=== PATIENT | male | born 1950 | race Caucasian/White ===

== ENCOUNTER 2017-06-10 17:25 | Emergency (ER) | payer OTHER ==
[~2017-06-10] VITALS: Ht 172.7 cm; Wt 148.6 kg
[2017-06-10 17:36] VITALS: TEMP 36.5; Ht 172.7 cm; Wt 148.6 kg
[2017-06-10] MEDS ORDERED: ALBUT/IPRATROP 3MG/0.5MG NEB 3 ML VIAL INH STA (17:45)
[2017-06-10 17:48] VITALS: O2SAT 100
[2017-06-10 18:17] LABS: BASO % 0.3 %; BASO ABS # 0.02 K/uL (0-0.2); COMPLETE YES; EOS % 7.6 %; HEMATOCRIT 42.1 % (42-52); IG% 0.3 %; LYMPH % 21.9 %; LYMPH ABS # 1.42 K/uL (1.2-3.4); MEAN CELL VOLUME 98.1 fL (80-100); MEAN CORPUSCULAR HEMOGLOBIN 31.5 pg (25-34); MEAN CORPUSCULAR HGB CONC 32.1 g/dl (32-36); MEAN PLATELET VOLUME 9.1 fL (7.4-10.4); MONO % 6.3 %; NEUT % 63.6 %; PLATELET COUNT 264 K/uL (130-400); RED BLOOD COUNT 4.29 M/uL (4.7-6.1); WHITE BLOOD COUNT 6.49 K/uL (4.8-10.8)
[2017-06-10 18:28] LABS: PROTHROMBIN TIME (PATIENT) 10.3 SECONDS (9.0-12.0)
--- NOTE | 2017-06-10 18:35 | DIAGNOSTIC IMAGING REPORT ---
CHEST ONE VIEW PORTABLE HISTORY: Short of breath. COMPARISON: None. FINDINGS: The heart is mildly enlarged. Mild diffuse interstitial thickening. This may represent pulmonary vascular congestion. No focal lung consolidations to suggest pneumonia. No pleural effusions. No pneumothorax. IMPRESSION: Cardiomegaly with mild pulmonary vascular congestion without overt edema. Electronically signed by: Magnus Obando M.D. 06/10/2017 6:34 PM Dictated Date/Time: 06/10/2017 6:33 PM
[2017-06-10 18:42] LABS: ALT/SGPT 19 U/L (12-78); BLOOD UREA NITROGEN 20 mg/dl (7-18); BUN/CREATININE RATIO 22.5 (10-20); CALCIUM 8.5 mg/dl (8.5-10.1); CARBON DIOXIDE 32 mmol/L (21-32); CHLORIDE 104 mmol/L (98-107); CREATININE 0.87 mg/dl (0.60-1.40); GLUCOSE 103 mg/dl (70-99); POTASSIUM 3.8 mmol/L (3.5-5.1); SODIUM 142 mmol/L (136-145)
[2017-06-10 18:47] LABS: ALB/GLOB RATIO 0.9 (0.9-2); ALKALINE PHOSPHATASE 76 U/L (45-117); AST/SGOT 13 U/L (15-37); CKMB/CK RATIO 2.4 (0-3.0)
[2017-06-10] MEDS ORDERED: FUROSEMIDE 40 MG/4 ML VIAL IV STA (19:02)
[2017-06-10] MEDS ORDERED: GLYC1AER INH (19:05)
[2017-06-10] MEDS ORDERED: METO25TA3 PO (19:05)
[2017-06-10] MEDS ORDERED: ASPI81TA28 PO (19:05)
[2017-06-10] MEDS ORDERED: TAMS0.4C38 PO (19:05)
[2017-06-10] MEDS ORDERED: ALBINS/ INH (19:05)
[2017-06-10] MEDS ORDERED: ERGO500037 PO (19:05)
--- NOTE | 2017-06-10 19:06 | EMERGENCY ROOM VISIT NOTE ---
History Report prepared by Denis: Caroline Guidry Under the Supervision of: Dr. Enrique Abreu D.O. First contact with patient: 17:33 Chief Complaint: SHORTNESS OF BREATH Stated Complaint: BREATHING DIFF, COUGH History of Present Illness The patient is a 66 year old male who presents to the Emergency Room with complaints of worsening shortness of breath beginning an hour ago. The patient reports a difficult time breathing starting two days ago. He notes a cough and spitting up clear flem. The patient states that he has been unable to sleep for the past two days because every time he would lay down he would start wheezing. The patient states states he has had an episode like this before and it is because of his heart. He reports heart is only pumping at 60%. He notes when he walks his shortness of breath worsens. The patient wears 3 L of oxygen at home but states he is supposed to have it on 2 L. The patient has swelling in his legs which is normal for him. He used to be on a water pill. The patent has a history of a heart attack in 2014. Source of History: patient Onset: hour ago Position: other (generalized) Quality: other (shortness of breath) Timing: worsening Modifying Factors (Worsening): other (walking) Associated Symptoms: + cough, + SOB Review of Systems See HPI for pertinent positives & negatives. A total of 10 systems reviewed and were otherwise negative. Past Medical & Surgical Medical Problems: (1) Heart attack Family History No pertinent family history stated Social History Marital Status: Housing Status: lives with family Current/Historical Medications Scheduled Aspirin (Aspirin Ec), 81 MG PO DAILY Ergocalciferol (Vitamin D 35014 Unit), 50,000 UNIT PO WK Fenofibrate (Fenoglide), 120 MG PO DAILY Furosemide (Lasix), 40 MG PO DAILY Glycopyrrolate-Formoterol Fuma (Bevespi Aerosphere 9-4.8 Mcg/Act), 1 PUFF INH BID Metoprolol Succ (Toprol Xl) (Toprol-Xl), 25 MG PO DAILY Tamsulosin Hcl (Flomax), 0.4 MG PO QPM Scheduled PRN Albuterol Sulf (Proventil 0.083% 2.5MG/3ML), 2.5 MG INH QID PRN for Shortness of Breath Allergies Coded Allergies: No Known Allergies (Unverified , 06/10/17) Physical Exam Vital Signs Date Time Temp Pulse Resp B/P (MAP) Pulse Ox O2 Delivery O2 Flow Rate FiO2 06/10/17 18:56 69 22 103/60 91 Oxymask 4.0 06/10/17 17:56 71 06/10/17 17:48 100 Oxymask 4.0 06/10/17 17:42 100 Mask 4.0 06/10/17 17:40 100 Oxymask 4.0 06/10/17 17:36 36.5 72 31 138/65 100 Oxymask 4.0 Physical Exam CONSTITUTIONAL/VITAL SIGNS: Reviewed / noted above. GENERAL: Non-toxic in appearance. INTEGUMENTARY: Warm, dry, and [place]. HEAD: Normocephalic. EYES: without scleral icterus or trauma. ENT/OROPHARYNX: clear and moist. LYMPHADENOPATHY/NECK: Is supple without lymphadenopathy or meningismus. RESPIRATORY: Mild scattered wheezes. CARDIOVASCULAR: Regular rate and rhythm. GI/ABDOMEN: Soft and nontender. No organomegaly or pulsatile mass. No rebound or guarding. Normal bowel sounds. EXTREMITIES: Chronic bilateral pitting edema. Warm and well perfused. BACK: No CVA tenderness. NEUROLOGICAL: Intact without focal deficits. PSYCHIATRIC: normal affect. MUSCULOSKELETAL: Normally developed with good muscle tone. Medical Decision & Procedures ER Provider Diagnostic Interpretation: Radiology results as stated below per my review and radiologist interpretation: CHEST ONE VIEW PORTABLE FINDINGS: The heart is mildly enlarged. Mild diffuse interstitial thickening. This may represent pulmonary vascular congestion. No focal lung consolidations to suggest pneumonia. No pleural effusions. No pneumothorax. IMPRESSION: Cardiomegaly with mild pulmonary vascular congestion without overt edema. Electronically signed by: Magnus Obando M.D. Laboratory Results 06/10/17 18:00 Red Blood Count 4.29, Mean Corpuscular Volume 98.1, Mean Corpuscular Hemoglobin 31.5, Mean Corpuscular Hemoglobin Concent 32.1, Mean Platelet Volume 9.1, Neutrophils (%) (Auto) 63.6, Lymphocytes (%) (Auto) 21.9, Monocytes (%) (Auto) 6.3, Eosinophils (%) (Auto) 7.6, Basophils (%) (Auto) 0.3, Neutrophils # (Auto) 4.13, Lymphocytes # (Auto) 1.42, Monocytes # (Auto) 0.41, Eosinophils # (Auto) 0.49, Basophils # (Auto) 0.02 06/10/17 18:00 Test 06/10/17 18:00 White Blood Count 6.49 K/uL (4.8-10.8) Red Blood Count 4.29 M/uL (4.7-6.1) Hemoglobin 13.5 g/dL (14.0-18.0) Hematocrit 42.1 % (42-52) Mean Corpuscular Volume 98.1 fL (80-100) Mean Corpuscular Hemoglobin 31.5 pg (25-34) Mean Corpuscular Hemoglobin Concent 32.1 g/dl (32-36) Platelet Count 264 K/uL (130-400) Mean Platelet Volume 9.1 fL (7.4-10.4) Neutrophils (%) (Auto) 63.6 % Lymphocytes (%) (Auto) 21.9 % Monocytes (%) (Auto) 6.3 % Eosinophils (%) (Auto) 7.6 % Basophils (%) (Auto) 0.3 % Neutrophils # (Auto) 4.13 K/uL (1.4-6.5) Lymphocytes # (Auto) 1.42 K/uL (1.2-3.4) Monocytes # (Auto) 0.41 K/uL (0.11-0.59) Eosinophils # (Auto) 0.49 K/uL (0-0.5) Basophils # (Auto) 0.02 K/uL (0-0.2) RDW Standard Deviation 51.7 fL (36.4-46.3) RDW Coefficient of Variation 14.5 % (11.5-14.5) Immature Granulocyte % (Auto) 0.3 % Immature Granulocyte # (Auto) 0.02 K/uL (0.00-0.02) Prothrombin Time 10.3 SECONDS (9.0-12.0) Prothromb Time International Ratio 1.0 (0.9-1.1) Activated Partial Thromboplast Time 26.6 SECONDS (21.0-31.0) Partial Thromboplastin Ratio 1.0 Anion Gap 6.0 mmol/L (3-11) Est Creatinine Clear Calc Drug Dose 120.3 ml/min Estimated GFR () 105.0 Estimated GFR (Non- 90.6 BUN/Creatinine Ratio 22.5 (10-20) Calcium Level 8.5 mg/dl (8.5-10.1) Total Bilirubin 0.3 mg/dl (0.2-1) Aspartate Amino Transf (AST/SGOT) 13 U/L (15-37) Alanine Aminotransferase (ALT/SGPT) 19 U/L (12-78) Alkaline Phosphatase 76 U/L (45-117) Total Creatine Kinase 121 U/L (39-308) Creatine Kinase MB 2.9 ng/ml (0.5-3.6) Creatine Kinase MB Ratio 2.4 (0-3.0) Troponin I < 0.015 ng/ml (0-0.045) Total Protein 7.1 gm/dl (6.4-8.2) Albumin 3.3 gm/dl (3.4-5.0) Globulin 3.8 gm/dl (2.5-4.0) Albumin/Globulin Ratio 0.9 (0.9-2) Laboratory results as stated above per my review. Medications Administered Medications (Trade) Dose Ordered Sig/Jelly Route Start Time Stop Time Status Last Admin Dose Admin Albuterol/ Ipratropium (Duoneb) 3 ml NOW STAT INH 06/10/17 17:45 06/10/17 17:47 DC 06/10/17 17:45 3 ML ECG Indication: SOB/dyspnea Rate (beats per minute): 70 Rhythm: sinus rhythm Findings: no ectopy, other (no acute injury) ED Course 173: Previous medical records were reviewed. The patient was evaluated in room C6. A complete history and physical examination was performed. 174: Ordered Duoneb 3 ml INH. 190: Lasix Inj 40 mg IV. 8: On reevaluation, the patient is resting comfortably. I discussed the results and findings with the patient. He verbalized agreement of the treatment plan. The patient was discharged home. Medical Decision the differential was considered includes acute myocardial infarction, acute coronary syndrome, myocarditis, pericarditis, pericardial effusions /tamponad, esophageal perforation, pulmonary embolism, pneumonia, pneumothorax, cardiomyopathy, congestive heart, anemia , COPD/asthma exacerbation. This is a 66-year-old male who presents to the ED with a chief complaint of cough and some shortness of breath. The patient reports that his symptoms have been present for the past couple of days but worsened today around 4:30. Denies any productive cough. He has not had fevers. His physical exam is noted above. He does have some scattered wheezes on expiration. He has chronic lower extremity edema. He is in no distress and is saturating in the high 90s on his usual 2-3 L of oxygen. A twelve-lead EKG shows a sinus rhythm at a rate of 70. His CBC is normal. Chemistry panel is unremarkable. Troponin is negative. Chest x-ray reveals some mild vascular congestion and some cardiomegaly. The patient was told the results of the test. He was discharged with a prescription for Lasix for the next few days. He is felt to be stable for discharge and outpatient follow-up. Blood Pressure Screening Patient's blood pressure: Normal blood pressure Impression Primary Impression: Dyspnea Additional Impressions: CHF (congestive heart failure) COPD (chronic obstructive pulmonary disease) Scribe Attestation The scribe's documentation has been prepared under my direction and personally reviewed by me in its entirety. I confirm that the note above accurately reflects all work, treatment, procedures, and medical decision making performed by me. Departure Information Dispostion Home / Self-Care Prescriptions Furosemide (Lasix) 40 Mg Tab 40 MG PO DAILY, #3 TAB Prov: Enrique Abreu D.O. 06/10/17 Referrals No Doctor, Assigned (PCP) Forms HOME CARE DOCUMENTATION FORM, IMPORTANT VISIT INFORMATION Patient Instructions My [facility] Additional Instructions Lasix once a day for the next 3 days as prescribed. Follow-up with your doctor for further care and evaluation in 1-2 days. Return to the emergency department for worsening or new symptoms or any concerns. You have been examined and treated today on an emergency basis only. This is not a substitute for, or an effort to provide, complete comprehensive medical care. It is impossible to recognize and treat all injuries or illnesses in a single emergency department visit. It is therefore important that you follow up closely with your doctor. Call as soon as possible for an appointment. Problem Qualifiers
[2017-06-10] MEDS ORDERED: FENO120T PO (19:10)
[2017-06-10] MEDS ORDERED: FRS/40 PO (19:27)
[2017-06-10 20:14] VITALS: BP 128/98; PULSE 72; O2SAT 92
== END 2017-06-10 20:15 | disposition home or self-care (01) ==
LOC: EDBD 17:25 → C.EDC 17:27
DX: R06.09 Other forms of dyspnea (principal); I50.9 Heart failure, unspecified; J44.9 Chronic obstructive pulmonary disease, unspecified; I25.2 Old myocardial infarction; Z79.82 Long term (current) use of aspirin; Z79.899 Other long term (current) drug therapy

== ENCOUNTER 2017-06-14 03:31 | Inpatient (IN) | payer OTHER ==
[2017-06-14] VITALS (9 sets, daily range): BP systolic 92–150; BP diastolic 63–77; PULSE 67–88; TEMP 36.4–37.1; O2SAT 92–96; Ht 170.2 cm; Wt 143.2 kg
[~2017-06-14] VITALS: Ht 170.2 cm; Wt 143.2 kg
[~2017-06-14 03:31] MED LIST: ALBINS/ INH; ASPI81TA28 PO; ERGO500037 PO; FENO120T PO; FRS/40 PO; GLYC1AER INH; METO25TA3 PO; TAMS0.4C38 PO
[2017-06-14] MEDS ORDERED: ASPIRIN 81 MG CHEW PO STA (03:47)
[2017-06-14] MEDS ORDERED: ALBUTEROL 0.083% NEBU SOLN 3 ML VIAL INH STA (03:51)
[2017-06-14 03:54] LABS: BASO % 0.1 %; BASO ABS # 0.01 K/uL (0-0.2); COMPLETE YES; EOS % 6.5 %; HEMATOCRIT 41.9 % (42-52); IG% 0.4 %; LYMPH % 23.4 %; LYMPH ABS # 1.65 K/uL (1.2-3.4); MEAN CELL VOLUME 98.6 fL (80-100); MEAN CORPUSCULAR HEMOGLOBIN 30.1 pg (25-34); MEAN CORPUSCULAR HGB CONC 30.5 g/dl (32-36); MEAN PLATELET VOLUME 9.2 fL (7.4-10.4); MONO % 5.9 %; NEUT % 63.7 %; PLATELET COUNT 258 K/uL (130-400); RED BLOOD COUNT 4.25 M/uL (4.7-6.1); WHITE BLOOD COUNT 7.06 K/uL (4.8-10.8)
--- NOTE | 2017-06-14 04:03 | EMERGENCY ROOM VISIT NOTE ---
History Report prepared by Denis: Haim Harvey Under the Supervision of: Dr. Luis Lewis D.O. First contact with patient: 03:33 Chief Complaint: RESPIRATORY PROBLEMS Stated Complaint: Respiratory problems History of Present Illness The patient is a 66 year old male with a history of COPD and CHF who presents to the Emergency Room via EMS with complaints of worsening respiratory distress that started 2 hours ago. Per EMS, the patient ran out of Lasix yesterday, so he missed an entire day of doses. He was given a DuoNeb, 2 albuterol, and 3 of Nitroglycerin prior to arrival by EMS. The patient states that he started having worsening leg swelling for about 2 weeks, but has been taking his Lasix as he should be without missing any doses before yesterday. He notes that he was in here 4 days ago for similar symptoms, but they have gotten much worse since then. He adds that his ejection fraction is 60%. The patient notes that he currently has a bit of chest pain. Per EMS, the patient was noted to be hypertensive prior to arrival at 170/70. The patient had a heart attack in 2014 , and is supposed to be on 2 liters nasal cannula. Patient normally wears 2-3 L nasal cannula. He does admit that his normal weight is around 300 pounds. He admits to gaining at least 15 pounds over the past week. Source of History: patient, EMS Onset: 2 hours ago Position: other (global - respiratory distress) Quality: other (missed day of Lasix) Timing: worsening Associated Symptoms: + chest pain, + SOB Note: Associated symptoms: Worsening leg swelling for 2 weeks. Review of Systems See HPI for pertinent positives & negatives. A total of 10 systems reviewed and were otherwise negative. Past Medical & Surgical Medical Problems: (1) Heart attack Family History No pertinent family history Social History Smoking Status: Former Smoker Marital Status: Housing Status: lives with family Current/Historical Medications Scheduled Aspirin (Aspirin Ec), 81 MG PO DAILY Ergocalciferol (Vitamin D 16971 Unit), 50,000 UNIT PO WK Fenofibrate (Fenoglide), 120 MG PO DAILY Furosemide (Lasix), 40 MG PO DAILY Glycopyrrolate-Formoterol Fuma (Bevespi Aerosphere 9-4.8 Mcg/Act), 1 PUFF INH BID Metoprolol Succ (Toprol Xl) (Toprol-Xl), 25 MG PO DAILY Tamsulosin Hcl (Flomax), 0.4 MG PO QPM Scheduled PRN Albuterol Sulf (Proventil 0.083% 2.5MG/3ML), 2.5 MG INH QID PRN for Shortness of Breath Allergies Coded Allergies: No Known Allergies (Unverified , 06/14/17) Physical Exam Vital Signs Date Time Temp Pulse Resp B/P (MAP) Pulse Ox O2 Delivery O2 Flow Rate FiO2 06/14/17 03:51 71 06/14/17 03:47 95 Room Air 06/14/17 03:47 95 Room Air 06/14/17 03:37 36.8 72 24 112/67 Room Air 06/14/17 03:37 95 Nasal Cannula 6.0 Physical Exam GENERAL: Morbidly obese, sitting up in bed, dyspneic with conversation, moderate distress. EYE EXAM: normal conjunctiva. OROPHARYNX: no exudate, no erythema, lips, buccal mucosa, and tongue normal and mucous membranes are moist NECK: supple, no nuchal rigidity, no adenopathy, non-tender, unable to appreciate JVD LUNGS: Poor air movement bilaterally with diffuse wheezing. Normal chest wall mechanics HEART: distant, no murmurs, S1 normal and S2 normal ABDOMEN: abdomen soft, non-tender, normo-active bowel sounds, no masses, no rebound or guarding. BACK: Back is symmetrical on inspection and there is no deformity, no midline tenderness, no CVA tenderness. SKIN: no rashes and no bruising UPPER EXTREMITIES: upper extremities are grossly normal. LOWER EXTREMITIES: Pitting edema tracking up to thighs. NEURO EXAM: Normal sensorium, cranial nerves II-XII grossly intact, normal speech, no gross weakness of arms, no gross weakness of legs. Medical Decision & Procedures ER Provider Diagnostic Interpretation: X-ray results as stated below per my review: CHEST X-RAY 2 VIEWS: With cephalization, normal mediastinum. Cardiomegaly. Laboratory Results 06/14/17 03:44 Red Blood Count 4.25, Mean Corpuscular Volume 98.6, Mean Corpuscular Hemoglobin 30.1, Mean Corpuscular Hemoglobin Concent 30.5, Mean Platelet Volume 9.2, Neutrophils (%) (Auto) 63.7, Lymphocytes (%) (Auto) 23.4, Monocytes (%) (Auto) 5.9, Eosinophils (%) (Auto) 6.5, Basophils (%) (Auto) 0.1, Neutrophils # (Auto) 4.49, Lymphocytes # (Auto) 1.65, Monocytes # (Auto) 0.42, Eosinophils # (Auto) 0.46, Basophils # (Auto) 0.01 06/14/17 03:44 Test 06/14/17 03:44 06/14/17 05:15 06/14/17 05:38 White Blood Count 7.06 K/uL (4.8-10.8) Red Blood Count 4.25 M/uL (4.7-6.1) Hemoglobin 12.8 g/dL (14.0-18.0) Hematocrit 41.9 % (42-52) Mean Corpuscular Volume 98.6 fL (80-100) Mean Corpuscular Hemoglobin 30.1 pg (25-34) Mean Corpuscular Hemoglobin Concent 30.5 g/dl (32-36) Platelet Count 258 K/uL (130-400) Mean Platelet Volume 9.2 fL (7.4-10.4) Neutrophils (%) (Auto) 63.7 % Lymphocytes (%) (Auto) 23.4 % Monocytes (%) (Auto) 5.9 % Eosinophils (%) (Auto) 6.5 % Basophils (%) (Auto) 0.1 % Neutrophils # (Auto) 4.49 K/uL (1.4-6.5) Lymphocytes # (Auto) 1.65 K/uL (1.2-3.4) Monocytes # (Auto) 0.42 K/uL (0.11-0.59) Eosinophils # (Auto) 0.46 K/uL (0-0.5) Basophils # (Auto) 0.01 K/uL (0-0.2) RDW Standard Deviation 50.2 fL (36.4-46.3) RDW Coefficient of Variation 14.1 % (11.5-14.5) Immature Granulocyte % (Auto) 0.4 % Immature Granulocyte # (Auto) 0.03 K/uL (0.00-0.02) Prothrombin Time 10.4 SECONDS (9.0-12.0) Prothromb Time International Ratio 1.0 (0.9-1.1) Activated Partial Thromboplast Time 25.9 SECONDS (21.0-31.0) Partial Thromboplastin Ratio 1.0 Anion Gap 3.0 mmol/L (3-11) Est Creatinine Clear Calc Drug Dose 115.5 ml/min Estimated GFR () 103.5 Estimated GFR (Non- 89.3 BUN/Creatinine Ratio 21.4 (10-20) Calcium Level 8.2 mg/dl (8.5-10.1) Total Bilirubin 0.3 mg/dl (0.2-1) Aspartate Amino Transf (AST/SGOT) 12 U/L (15-37) Alanine Aminotransferase (ALT/SGPT) 19 U/L (12-78) Alkaline Phosphatase 74 U/L (45-117) Troponin I < 0.015 ng/ml (0-0.045) Pro-B-Type Natriuretic Peptide 62 pg/ml (0-900) Total Protein 6.7 gm/dl (6.4-8.2) Albumin 3.2 gm/dl (3.4-5.0) Globulin 3.5 gm/dl (2.5-4.0) Albumin/Globulin Ratio 0.9 (0.9-2) Urine Color YELLOW Urine Appearance CLEAR (CLEAR) Urine pH 5.0 (4.5-7.5) Urine Specific [place] 1.015 (1.000-1.030) Urine Protein NEG (NEG) Urine Glucose (UA) NEG (NEG) Urine Ketones NEG (NEG) Urine Occult Blood NEG (NEG) Urine Nitrite NEG (NEG) Urine Bilirubin NEG (NEG) Urine Urobilinogen NEG (NEG) Urine Leukocyte Esterase NEG (NEG) Laboratory results per my review. Medications Administered Medications (Trade) Dose Ordered Sig/Jelly Route Start Time Stop Time Status Last Admin Dose Admin Aspirin (Aspirin Chew) 324 mg NOW STAT PO 06/14/17 03:47 06/14/17 03:48 DC 06/14/17 03:50 324 MG Methylprednisolone Sodium Succinate (Solu-Medrol IV) 40 mg NOW STAT IV 06/14/17 03:51 06/14/17 03:52 DC 06/14/17 04:10 40 MG Albuterol Sulfate (Ventolin 0.083% 2.5MG/3ML Neb) 5 mg NOW STAT INH 06/14/17 03:51 06/14/17 03:52 DC 06/14/17 04:10 5 MG Furosemide (Lasix Inj) 40 mg NOW STAT IV 06/14/17 04:21 06/14/17 04:22 DC 06/14/17 04:27 40 MG ECG Indication: SOB/dyspnea Rate (beats per minute): 73 Rhythm: sinus rhythm Findings: Q waves (Septal), other (normal axis, poor baseline, normal intervals ) Change: no significant change (from 06/10/17) ED Course ED COURSE: Vital signs were reviewed and showed normal vitals. The patients medical record was reviewed The above diagnostic studies were performed and reviewed. ED treatments and interventions as stated above. 0333: The patient was evaluated in room B7. A complete history and physical examination was performed. 0347: Ordered Aspirin Chew 324 mg PO. 0351: Ordered Ventolin 0.083% 2.5MG/3ML Neb 5 mg INH, Solu-Medrol IV 40 mg. 0421: Ordered Lasix Inj 40 mg IV. 0430: I reevaluated the patient and his chest pain is about a 2 out of 10 and significantly improved after the Nitroglycerin. 0438: Upon reevaluation, the patient is resting. He notes that he used to be able to walk 5 to 8 times more than he can now. He can now barely move due to his shortness of breath. I discussed my findings with the patient and he understands and agrees with the treatment plan. Based on the patients age, coexisting illnesses, exam and lab findings the decision to treat as an inpatient was made. The patient remained stable while under my care. The patient will be evaluated for further management. 0513: I reviewed the patient's case with Dr. Octavio Vega head boys tennis coach. He will evaluate the patient for further management. Medical Decision Differential diagnoses includes but is not limited to pneumonia, bronchitis, COPD/Asthma exacerbation, pneumothorax, pulmonary embolism, congestive heart failure, acute coronary syndrome. Patient is a 66-year-old male with a past medical history of [place], CHF with apparently a preserved EF of 60% and COPD requiring chronically 2 L nasal cannula that presents to ER for significant shortness of breath a/w chest pain. Chest pain in middle of chest and tight 2/10 after the nitro as it improved. He admits to at least a 15 pound weight came over the past week. He notes that shortness of breath has gotten significantly worse from previous visit here. Exertion increases his shortness of breath significantly as he can no longer ambulate. Unable to lay flat. With his extensive pitting edema and chest x- ray there is clearly a component of CHF. I favor this is likely exacerbating his COPD as lung manrique have diffuse wheezing bilaterally as opposed to rhonchi. With his symptoms he was given aspirin, steroids, nebs and Lasix. He was updated bedside. EKG was unchanged from previous. He was admitted to internal medicine for exacerbation of CHF and COPD after receiving 3 neb treatments, and 2 tabs of nitroglycerin via EMS along with the above medications in the ER including nebs, Lasix and steroids. Medication Reconcilliation Current Medication List: was personally reviewed by me Blood Pressure Screening Patient's blood pressure: Normal blood pressure Consults Time Called: 0500 Consulting Physician: Dr. Octavio Vega head boys tennis coach Returned Call: 05 I reviewed the patient's case with Dr. Octavio Vega head boys tennis coach. He will evaluate the patient for further management. Impression Primary Impression: CHF (congestive heart failure) Additional Impression: COPD (chronic obstructive pulmonary disease) Scribe Attestation The scribe's documentation has been prepared under my direction and personally reviewed by me in its entirety. I confirm that the note above accurately reflects all work, treatment, procedures, and medical decision making performed by me. Departure Information Dispostion Being Evaluated By Hospitalist Referrals Samuel Reynolds M.D. (PCP) Patient Instructions My [facility] Problem Qualifiers Primary Impression: CHF (congestive heart failure) Congestive heart failure type: unspecified congestive heart failure type Congestive heart failure chronicity: unspecified congestive heart failure chronicity Qualified Codes: I50.9 - Heart failure, unspecified Additional Impression: COPD (chronic obstructive pulmonary disease) COPD type: unspecified COPD Qualified Codes: J44.9 - Chronic obstructive pulmonary disease, unspecified
[2017-06-14 04:06] LABS: PROTHROMBIN TIME (PATIENT) 10.4 SECONDS (9.0-12.0)
[2017-06-14 04:11] LABS: ALT/SGPT 19 U/L (12-78); AST/SGOT 12 U/L (15-37); BLOOD UREA NITROGEN 19 mg/dl (7-18); BUN/CREATININE RATIO 21.4 (10-20); CALCIUM 8.2 mg/dl (8.5-10.1); CARBON DIOXIDE 35 mmol/L (21-32); CHLORIDE 102 mmol/L (98-107); GLUCOSE 101 mg/dl (70-99); POTASSIUM 3.9 mmol/L (3.5-5.1); SODIUM 140 mmol/L (136-145)
[2017-06-14 04:16] LABS: ALB/GLOB RATIO 0.9 (0.9-2); ALKALINE PHOSPHATASE 74 U/L (45-117)
[2017-06-14] MEDS ORDERED: FUROSEMIDE 40 MG/4 ML VIAL IV STA (04:21)
[2017-06-14 05:27] LABS: URINE APPEARANCE CLEAR (CLEAR); URINE BILIRUBIN NEG (NEG); URINE COLOR YELLOW; URINE NITRITE NEG (NEG); URINE SPECIFIC GRAVITY 1.015 (1.000-1.030); UROBILINOGEN NEG (NEG)
[2017-06-14 05:32] LABS: MANUAL MICROSCOPIC REQUIRED? NO; REVIEW REQ? NO
[2017-06-14] MEDS ORDERED: ACETAMINOPHEN 325 MG TAB PO PRN (06:00)
[2017-06-14] MEDS ORDERED: ALUMINUM/MAGNESIUM/SIMETH (MAALOX MAX) 30 ML UDC PO PRN (06:00)
--- NOTE | 2017-06-14 06:24 | History and Physical ---
History & Physical Date & Time of Service: Jun 14, 2017 at 06:11 Chief Complaint: Respiratory problems Primary Care Physician: Samuel Reynolds M.D. History of Present Illness Source: patient, family This is a 66 year old male with a PMH of COPD, former smoker, chronic respiratory failure on 2L O2 chronically, CAD, possibly CHF, CKD stage 3 - presents with worsening shortness of breath. He presented to [facility] ED on Sunday, 06/10 - was given neb treatments and Lasix and was sent home with Lasix as well. He came back with worsening swelling of the legs, about a 20lbs. weight gain in the past 3 weeks and worsening shortness of breath. He is from [place] and recently moved up to [facility] to live with his other daughter. He has not established care with a primary care around the area as of yet. States that he was on a water pill, but was taken off prior to coming to [place] due to his kidneys. His breathing is worse when he lies down flat. No chest pain or palpitations. Past Medical/Surgical History Medical Problems: (1) Heart attack Status: Resolved Family History No pertinent family history Social History Smoking Status: Former Smoker Marital Status: Allergies Coded Allergies: No Known Allergies (Unverified , 06/14/17) Home Medications Scheduled Aspirin (Aspirin Ec), 81 MG PO DAILY Ergocalciferol (Vitamin D 32801 Unit), 50,000 UNIT PO WK Fenofibrate (Fenoglide), 120 MG PO DAILY Furosemide (Lasix), 40 MG PO DAILY Glycopyrrolate-Formoterol Fuma (Bevespi Aerosphere 9-4.8 Mcg/Act), 1 PUFF INH BID Metoprolol Succ (Toprol Xl) (Toprol-Xl), 25 MG PO DAILY Tamsulosin Hcl (Flomax), 0.4 MG PO QPM Scheduled PRN Albuterol Sulf (Proventil 0.083% 2.5MG/3ML), 2.5 MG INH QID PRN for Shortness of Breath Review of Systems Constitutional: No fever, No chills, No sweats, No weakness, No fatigue Respiratory: + cough, + sputum, + wheezing, + shortness of breath, + dyspnea on exertion, No dyspnea at rest, No hemoptysis Cardiovascular: + orthopnea, + edema, No chest pain, No palpitations Abdomen: No pain, No nausea, No vomiting, No diarrhea, No constipation Musculoskeletal: + joint pain (bilateral knee pain), + swelling, No muscle pain , No calf pain Genitourinary - Male: No hematuria, No dysuria, No urinary frequency, No urinary urgency Neurologic: No memory loss, No weakness, No numbness/tingling, No vertigo, No balance problems Psychiatric: No depression symptoms, No anxiety, No insomnia Endocrine: No fatigue Hematologic / Lymphatic: No abnormal bleeding/bruising Integumentary: No rash Allergic / Immunologic: No environmental allergies, No seasonal allergies Physical Exam Vital Signs Date Time Temp Pulse Resp B/P (MAP) Pulse Ox O2 Delivery O2 Flow Rate FiO2 06/14/17 03:51 71 06/14/17 03:47 95 Room Air 06/14/17 03:47 95 Room Air 06/14/17 03:37 36.8 72 24 112/67 Room Air 06/14/17 03:37 95 Nasal Cannula 6.0 General Appearance: + mild distress (secondary to pain and shortness of breath) , + obese Head: normocephalic, atraumatic Eyes: normal inspection ENT: hearing grossly normal Neck: supple Respiratory/Chest: no respiratory distress, no accessory muscle use, + decreased breath sounds, + wheezing Cardiovascular: regular rate, rhythm, no murmur, + pertinent finding (+3 pitting edema b/l LE up to knees) Abdomen/GI: normal bowel sounds, non tender, soft Extremities/Musculoskelatal: + pedal edema (+3 pitting edema b/l LE), + swelling, + pertinent finding 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, no motor/sensory deficits, alert, normal mood/affect, oriented x 3 Skin: normal color Lymphatic: no adenopathy Diagnostics Laboratory Results Results Past 24 Hours Test 06/14/17 03:44 06/14/17 05:15 06/14/17 05:38 Range/Units White Blood Count 7.06 4.8-10.8 K/uL Red Blood Count 4.25 4.7-6.1 M/uL Hemoglobin 12.8 14.0-18.0 g/dL Hematocrit 41.9 42-52 % Mean Corpuscular Volume 98.6 80-100 fL Mean Corpuscular Hemoglobin 30.1 25-34 pg Mean Corpuscular Hemoglobin Concent 30.5 32-36 g/dl Platelet Count 258 130-400 K/uL Mean Platelet Volume 9.2 7.4-10.4 fL Neutrophils (%) (Auto) 63.7 % Lymphocytes (%) (Auto) 23.4 % Monocytes (%) (Auto) 5.9 % Eosinophils (%) (Auto) 6.5 % Basophils (%) (Auto) 0.1 % Neutrophils # (Auto) 4.49 1.4-6.5 K/uL Lymphocytes # (Auto) 1.65 1.2-3.4 K/uL Monocytes # (Auto) 0.42 0.11-0.59 K/uL Eosinophils # (Auto) 0.46 0-0.5 K/uL Basophils # (Auto) 0.01 0-0.2 K/uL RDW Standard Deviation 50.2 36.4-46.3 fL RDW Coefficient of Variation 14.1 11.5-14.5 % Immature Granulocyte % (Auto) 0.4 % Immature Granulocyte # (Auto) 0.03 0.00-0.02 K/uL Prothrombin Time 10.4 9.0-12.0 SECONDS Prothromb Time International Ratio 1.0 0.9-1.1 Activated Partial Thromboplast Time 25.9 21.0-31.0 SECONDS Partial Thromboplastin Ratio 1.0 Sodium Level 140 136-145 mmol/L Potassium Level 3.9 3.5-5.1 mmol/L Chloride Level 102 98-107 mmol/L Carbon Dioxide Level 35 21-32 mmol/L Anion Gap 3.0 3-11 mmol/L Blood Urea Nitrogen 19 7-18 mg/dl Creatinine 0.90 0.60-1.40 mg/dl Est Creatinine Clear Calc Drug Dose 115.5 ml/min Estimated GFR () 103.5 Estimated GFR (Non- 89.3 BUN/Creatinine Ratio 21.4 10-20 Random Glucose 101 70-99 mg/dl Calcium Level 8.2 8.5-10.1 mg/dl Total Bilirubin 0.3 0.2-1 mg/dl Aspartate Amino Transf (AST/SGOT) 12 15-37 U/L Alanine Aminotransferase (ALT/SGPT) 19 12-78 U/L Alkaline Phosphatase 74 45-117 U/L Troponin I < 0.015 0-0.045 ng/ml Pro-B-Type Natriuretic Peptide 62 0-900 pg/ml Total Protein 6.7 6.4-8.2 gm/dl Albumin 3.2 3.4-5.0 gm/dl Globulin 3.5 2.5-4.0 gm/dl Albumin/Globulin Ratio 0.9 0.9-2 Urine Color YELLOW Urine Appearance CLEAR CLEAR Urine pH 5.0 4.5-7.5 Urine Specific [place] 1.015 1.000-1.030 Urine Protein NEG NEG Urine Glucose (UA) NEG NEG Urine Ketones NEG NEG Urine Occult Blood NEG NEG Urine Nitrite NEG NEG Urine Bilirubin NEG NEG Urine Urobilinogen NEG NEG Urine Leukocyte Esterase NEG NEG Impression Assessment and Plan This is a 66 year old male with a PMH of COPD, former smoker, chronic respiratory failure on 2L O2 chronically, CAD, possibly CHF, CKD stage 3 - presents with worsening shortness of breath. Acute on Chronic Respiratory Failure secondary to Acute COPD exacerbation patient is a former smoker, currently wheezing with cough/production improved breathing status with nebulizer treatment will continue duonebs around the clock and as needed Solu-medrol 40mg q8 for now added Protonix with the steroid use doxycycline Fluid Overload, Edema unsure of diagnosis of CHF? HIM request for records from [place] primary care monitor in tele check echo significant weight gain and edema of b/l LE check dopplers of LE IV Lasix 40mg BID I's and O's, daily weights fluid restriction cardiology consulted CAD as per patient, he has 40% blockage in one of his arteries continue aspirin, Toprol Morbid Obesity check Ha1c check fasting lipid profile check TSH daily weights DVT ppx Lovenox FULL CODE VTE Prophylaxis VTE Risk Assessment Done? Y/N: Yes Risk Level: Moderate
--- NOTE | 2017-06-14 06:42 | DIAGNOSTIC IMAGING REPORT ---
ULTRASOUND VENOUS DOPPLER LWR EXT BILA CLINICAL HISTORY: Lower extremity swelling. COMPARISON STUDY: No previous studies for comparison. FINDINGS: Real-time and color flow Doppler imaging were performed. Flow was seen within the femoral, popliteal and calf veins with no intraluminal thrombus demonstrated. The saphenous vein is patent. IMPRESSION: No evidence of lower extremity DVT. Electronically signed by: Justin Falcon M.D. 06/14/2017 6:40 AM Dictated Date/Time: 06/14/2017 6:39 AM
[2017-06-14 06:45] LABS: ESTIMATED AVERAGE GLUCOSE 120 mg/dl; HA1C FLAG Normal (Normal)
--- NOTE | 2017-06-14 06:46 | DIAGNOSTIC IMAGING REPORT ---
CHEST 2 VIEWS ROUTINE CLINICAL HISTORY: Respiratory distress. COMPARISON STUDY: 06/10/2017 FINDINGS: The heart is at the upper limits of normal in size. There is improving interstitial thickening/edema. There is no lobar consolidation. There are no significant pleural effusions.[ IMPRESSION: Slight improvement in the previously described interstitial thickening/edema. No evidence of focal pulmonary consolidation Electronically signed by: Justin Falcon M.D. 06/14/2017 6:45 AM Dictated Date/Time: 06/14/2017 6:43 AM
[2017-06-14 07:13] LABS: CHOLESTEROL/HDL RATIO 4.3; THYROID STIMULATING HORMONE 3.27 uIu/ml (0.300-4.500)
[2017-06-14] MEDS: ALBUT/IPRATROP 3MG/0.5MG NEB 3 ML VIAL INH SCH ×4 (07:21→19:45)
[2017-06-14] MEDS: ASPIRIN 81 MG ECTAB PO SCH (07:47)
[2017-06-14] MEDS: METOPROLOL SUCC 25MG EXT REL TAB PO SCH (07:47)
[2017-06-14] MEDS: DOXYCYCLINE HYCLATE 100 MG CAP PO SCH ×2 (07:47→20:17)
[2017-06-14] MEDS: ENOXAPARIN 40 MG/0.4 ML SYR SC SCH (07:47)
[2017-06-14] MEDS: PANTOprazole SOD 40 MG TAB PO SCH (07:47)
[2017-06-14] MEDS: FUROSEMIDE INJ 40 MG in SYRINGE 0 ML IV SCH ×2 (07:54→17:17)
[2017-06-14] MEDS ORDERED: PNEUMOCOCCAL POLYSACCHARIDES 25 MCG/0.5 ML VIAL/SYR IM. ONE (10:00)
[2017-06-14] MEDS ORDERED: INFLUENZA VACCINE HIGH DOSE 65+ 0.5 ML SYR IM. ONE (10:00)
[2017-06-14] MEDS ORDERED: INFLUENZA ADMINISTRATION CHARGE ONE (10:00)
[2017-06-14] MEDS ORDERED: PNEUMOCOCCAL ADMINISTRATION CHARGE ONE (10:00)
[2017-06-14] MEDS ORDERED: POTASSIUM CHLORIDE 20 MEQ TABCR PO ONE (10:05)
[2017-06-14] MEDS ORDERED: PERFLUTREN LIPID MICROSPHERE (DEFINITY) IV ONE (11:33)
--- NOTE | 2017-06-14 12:50 | ECHOCARDIOGRAM REPORT ---
*NOTICE TO RECEIVING DEMOCRAT AGENCY This information is strictly Confidential and protected under [place] law. [place] law prohibits you from making any further disclosure of this information unless further disclosure is expressly permitted by the written consent of the person to whom it pertains or is authorized by law. A general authorization for the release of medical or other information is not sufficient for this purpose. Hospital accepts no responsibility if the information is made available to any other person, INCLUDING THE PATIENT. Interpretation Summary * Name: JACKIE HERNANDEZ Study Date: 06/14/2017 11:01 AM BP: 118/64 mmHg * Patient Location: C.2T\S\S236\S\1 HR: 70 * : 1950 (M/d/yyyy) Gender: Male Height: 67 in * Age: 66 yrs Ethnicity: CA Weight: 331 lb * Ordering Physician: Joseph Cunningham * Referring Physician: Self, Referred * Performed By: Sherin Hernandez RDCS * * Reason For Study: CHF * BSA: 2.5 m2 * -- Conclusions -- * Normal LV chamber size with mild concentric LVH. * Normal LV systolic function, EF 60-65%. * No segmental left ventricular wall motion abnormalities are noted. * Grade II diastolic dysfunction. * Poorly visualized valvular structures with no significant stenosis or regurgitation by Doppler. * Inadequate TR jet to accurately assess PASP. Procedure Details * A complete two-dimensional transthoracic echocardiogram was performed (2D, M-mode, Doppler and color flow Doppler). * A contrast injection of Definity was performed to improve assessment of LV function. * Contrast was injected into an intravenous site in the right arm. * One vial of Definity ultrasound contrast was diluted in normal saline to a total volume of 10 ml. A total of '2' ml of solution was administered during imaging. * Lot # [id number] of Definity utilized for procedure. * Expiration date jul 09. * The attending nurse who injected the contrast agent was Song Zayas RN. Left Ventricle * The left ventricle is normal in size. * There is mild concentric left ventricular hypertrophy. * Ejection Fraction = 60-65%. * Left ventricular systolic function is normal. * No segmental left ventricular wall motion abnormalities are noted. * The left ventricular wall motion is normal. Right Ventricle * The right ventricular cavity size is normal (basal dimension <4.2 cm in right ventricular apical 4-chamber view). * The right ventricular systolic function is normal as assessed by tricuspid annular plane systolic excursion (TAPSE) (normal >1.5 cm). Atria * The left atrium is not well visualized. * Right atrium not well visualized. Mitral Valve * The mitral valve is not well visualized. * There is no mitral valve stenosis. * There is no mitral regurgitation noted. Tricuspid Valve * The tricuspid valve is not well visualized. * There is no tricuspid stenosis. * No tricuspid regurgitation. Aortic Valve * The aortic valve is not well visualized. * No hemodynamically significant valvular aortic stenosis. * There is no significant aortic regurgitation. Pulmonic Valve * The pulmonary valve is not well seen, but the Doppler examination is normal without significant regurgitation or stenosis. Great Vessels * The aortic root is not well visualized. Pericardium/Pleural * There is no pericardial effusion. * Epicardial fat pad. Left Ventricular Diastolic Function * Diastolic dysfunction, Grade II (pseudonormalization pattern). MMode 2D Measurements and Calculations IVSd 0.96 cm LVIDd 5.5 cm LVIDs 3.8 cm LVPWd 1.2 cm IVS/LVPW 0.81 FS 31.0 % EDV(Teich) 148.6 ml ESV(Teich) 62.2 ml EF(Teich) 58.1 % EDV(cubed) 168.2 ml ESV(cubed) 55.2 ml EF(cubed) 67.2 % LV mass(C)d 236.5 grams LV mass(C)dI 94.4 grams/m\S\2 SV(Teich) 86.4 ml SI(Teich) 34.5 ml/m\S\2 SV(cubed) 113.0 ml SI(cubed) 45.1 ml/m\S\2 Ao root diam 2.5 cm Ao root area 5.1 cm\S\2 ACS 1.7 cm asc Aorta Diam 2.6 cm LVOT diam 1.8 cm LVOT area 2.6 cm\S\2 LVAd ap4 33.3 cm\S\2 LVLd ap4 7.4 cm EDV(MOD-sp4) 121.8 ml EDV(sp4-el) 127.1 ml LVAs ap4 17.8 cm\S\2 LVLs ap4 5.6 cm ESV(MOD-sp4) 46.9 ml ESV(sp4-el) 48.1 ml EF(MOD-sp4) 61.5 % EF(sp4-el) 62.2 % LVAd ap2 28.9 cm\S\2 LVLd ap2 7.1 cm EDV(MOD-sp2) 93.7 ml EDV(sp2-el) 99.3 ml LVAs ap2 15.6 cm\S\2 LVLs ap2 5.6 cm ESV(MOD-sp2) 36.0 ml ESV(sp2-el) 37.1 ml EF(MOD-sp2) 61.6 % EF(sp2-el) 62.7 % LVLd %diff -3.88 % EDV(MOD-bp) 107.5 ml LVLs %diff -0.45 % ESV(MOD-bp) 41.2 ml EF(MOD-bp) 61.7 % SV(MOD-sp4) 74.9 ml SI(MOD-sp4) 29.9 ml/m\S\2 SV(MOD-sp2) 57.7 ml SI(MOD-sp2) 23.0 ml/m\S\2 SV(MOD-bp) 66.3 ml SI(MOD-bp) 26.5 ml/m\S\2 SV(sp4-el) 79.1 ml SI(sp4-el) 31.6 ml/m\S\2 SV(sp2-el) 62.3 ml SI(sp2-el) 24.9 ml/m\S\2 Doppler Measurements and Calculations MV E max mayito 86.8 cm/sec MV A max mayito 81.5 cm/sec MV E/A 1.1 MV dec time 0.25 sec Ao V2 max 188.5 cm/sec Ao max PG 14.2 mmHg Ao max PG (full) 2.1 mmHg NOREEN(V,A) 2.4 cm\S\2 NOREEN(V,D) 2.4 cm\S\2 LV V1 max PG 12.1 mmHg LV V1 max 173.8 cm/sec PA V2 max 116.7 cm/sec PA max PG 5.5 mmHg PA acc slope 699.4 cm/sec\S\2 PA acc time 0.09 sec TR max mayito 220.4 cm/sec PA pr(Accel) 37.8 mmHg
--- NOTE | 2017-06-14 13:28 | CARDIOLOGY CONSULTATION ---
DATE OF CONSULTATION: 06/14/2017 CONSULTATION REQUESTED BY: Dr. Cunningham. REASON FOR CONSULTATION: Acute decompensated heart failure. HISTORY OF PRESENT ILLNESS: Mr. Montgomery is a very pleasant 66-year-old gentleman who presented to [facility] Emergency Department early in the a.m. of 06/14/2017 with a complaint of shortness of breath. The patient recently moved back to the area from [place] and no outside medical records are available at this time, but according to the patient, the patient has been diagnosed with heart problems in the past and he is supposed to be on Lasix; however, he stopped taking the Lasix approximately 3 weeks ago reportedly due to issues with his kidneys. He states that since then he has been having dyspnea with exertion; however, later in the evening of 06/13/2017, when the patient laid down to go to sleep, he became acutely short of breath while lying down. At that point, he became concerned and came into the Emergency Department. In the Emergency Department, he was found to be volume overload and started on diuretics. Of note, the patient was recently seen in the Emergency Department on June 10 and given nebulizer treatments and Lasix as well as Lasix for home, but he states that his shortness of breath and edema continued despite the Lasix therapy. PAST SURGICAL HISTORY: 1. Cardiac catheterization, reportedly showing only a 20% blockage. 2. Multiple hernia repair surgeries. MEDICAL ILLNESSES: 1. Stage III chronic kidney disease. 2. Coronary artery disease, likely nonobstructive given the patient's description. 3. Tobacco abuse. 4. Chronic respiratory failure on home O2. 5. Obesity. FAMILY HISTORY: Noncontributory. SOCIAL HISTORY: The patient is a former smoker, has smoked for 47 years. Drinks occasional alcohol. Denies any recreational drug use. He recently moved from [place] to [place] to live closer to his daughter. He is a retired facilities maintenance worker. He does not exercise. REVIEW OF SYSTEMS: As per HPI, all other review of systems reviewed and negative at this time. ALLERGIES: No known drug allergies. MEDICATIONS AN OUTPATIENT: 1. Aspirin 81 mg daily. 2. Lasix 40 mg daily. 3. Toprol-XL 25 mg daily. 4. Flomax daily. 5. Fenofibrate daily. 6. Inhaler. PHYSICAL EXAMINATION: VITALS: Temperature 36.9, pulse 72, respiratory rate 12, blood pressure 101/70, and saturating 92% on 3 liters nasal cannula. GENERAL: Awake, alert, and oriented x3, in no acute distress. Stammer is present. HEENT: Normocephalic and atraumatic. Pupils equal, round, and reactive to light and accommodation. Extraocular muscles intact. Anicteric sclerae. Moist mucous membranes. NECK: No JVD and no bruit. CARDIOVASCULAR: Regular, but distant. Unable to appreciate murmurs, rubs or gallops. PULMONARY: Scant bibasilar crackles. Otherwise, scattered rhonchi. No wheezing. ABDOMEN: Obese, but soft. No rebound, guarding, or tenderness. No organomegaly. EXTREMITIES: +1 bilateral lower extremity pitting edema. No clubbing or cyanosis. SKIN: Warm and dry. TEST RESULTS: 2D echocardiogram was read as normal LV chamber size with mild concentric LVH, normal LV systolic function, EF 60%-65%, no segmental left ventricle wall motion abnormalities were noted, grade 2 diastolic dysfunction, poorly visualized valvular structures with no significant stenosis or regurgitation by Doppler, inadequate TR jet, accurately assessed PA systolic pressure. A 12-lead EKG performed in the Emergency Department independently reviewed at this time shows normal sinus rhythm at 73 beats per minute with low voltage, incomplete right bundle branch block, no signs of active ischemia. IMPRESSION: 1. Acute decompensated diastolic heart failure. 2. Obesity. 3. Chronic obstructive pulmonary disease. 4. Chronic respiratory failure. 5. Questionable renal impairment. RECOMMENDATIONS: It was my pleasure to see Mr. Montgomery in consultation today. The patient was counseled that he is suffering from diastolic dysfunction. The pathophysiology of which and treatment options were discussed with him at great lengths. So at this point, he has been appropriately started on Lasix 40 mg IV b.i.d., which I would recommend be continued. He is also on an evidence based beta kevin and aspirin, which again I recommend be continued. I would hold off on starting him on an LEN or ARB until we see where his renal function goes with diuresis. Otherwise, I will start potassium supplementation with the ongoing Lasix. Strict I's and O's should be maintained as well as close watch at repletion of his electrolytes as needed. The patient should be maintained on telemetry monitoring for now.
[2017-06-14] MEDS: METHYLPREDNISOLONE IV 40 MG in SYRINGE 0 ML IV SCH ×2 (15:48→20:17)
[2017-06-14] MEDS: POTASSIUM CHLORIDE 20 MEQ TABCR PO SCH (20:17)
[2017-06-14] MEDS: TAMSULOSIN HCL 0.4 MG CAP PO SCH (20:17)
[2017-06-15] VITALS (9 sets, daily range): BP systolic 107–120; BP diastolic 62–72; PULSE 56–82; TEMP 36.5–36.8; O2SAT 92–95
[2017-06-15] MEDS: METHYLPREDNISOLONE IV 40 MG in SYRINGE 0 ML IV SCH ×2 (04:18→11:31)
[2017-06-15 06:40] LABS: HEMATOCRIT 46.2 % (42-52); MEAN CELL VOLUME 97.5 fL (80-100); MEAN CORPUSCULAR HGB CONC 31.8 g/dl (32-36); MEAN PLATELET VOLUME 9.3 fL (7.4-10.4); PLATELET COUNT 310 K/uL (130-400); RED BLOOD COUNT 4.74 M/uL (4.7-6.1); WHITE BLOOD COUNT 14.48 K/uL (4.8-10.8)
[2017-06-15] MEDS: ALBUT/IPRATROP 3MG/0.5MG NEB 3 ML VIAL INH SCH ×4 (06:57→18:59)
[2017-06-15 07:10] LABS: BUN/CREATININE RATIO 20.3 (10-20); CALCIUM 9.6 mg/dl (8.5-10.1); CREATININE 1.25 mg/dl (0.60-1.40); MAGNESIUM 2.2 mg/dl (1.8-2.4); POTASSIUM 4.3 mmol/L (3.5-5.1)
[2017-06-15] MEDS: DOXYCYCLINE HYCLATE 100 MG CAP PO SCH ×2 (08:22→21:45)
[2017-06-15] MEDS: METOPROLOL SUCC 25MG EXT REL TAB PO SCH (08:22)
[2017-06-15] MEDS: PANTOprazole SOD 40 MG TAB PO SCH (08:22)
[2017-06-15] MEDS: ASPIRIN 81 MG ECTAB PO SCH (08:22)
[2017-06-15] MEDS: POTASSIUM CHLORIDE 20 MEQ TABCR PO SCH ×2 (08:22→21:45)
[2017-06-15] MEDS: ENOXAPARIN 40 MG/0.4 ML SYR SC SCH (08:22)
[2017-06-15] MEDS: FUROSEMIDE INJ 40 MG in SYRINGE 0 ML IV SCH ×2 (09:00→17:11)
--- NOTE | 2017-06-15 11:03 | PROGRESS NOTE ---
DATE: 06/15/2017 FOLLOWUP VISIT SUBJECTIVE: The patient is a 66-year-old male who moved here recently from the [place], still lives with his daughter. He has a history of a previous stroke and has difficulty formulating words and therefore, is a difficult historian. He was admitted with progressive lower extremity edema, which he states started this several weeks ago. His admission echocardiogram indicates preserved left ventricular systolic function, but there is evidence of diastolic dysfunction. He most likely has heart failure on the basis of diastolic dysfunction. The patient has been receiving IV diuretics. He has no new complaints today. OBJECTIVE: GENERAL: He is alert and oriented. VITAL SIGNS: Blood pressure is 117/70 and pulse is regular at 75. He is afebrile. HEENT: He is normocephalic. Pupils are equal and reactive to light. Extraocular muscles are intact bilaterally. NECK: The neck veins are flat. Carotids have good upstrokes bilaterally without bruits. Thyroid is nonpalpable. RESPIRATORY: Breath sounds equal bilaterally and clear to auscultation. CARDIOVASCULAR: Heart has a regular rhythm. There is an S4 present, no S3. GASTROINTESTINAL: Abdomen is soft and nontender without organomegaly. EXTREMITIES: Have edema to the mid calves bilaterally. NEUROLOGIC: Grossly intact. SKIN: Warm to touch. LYMPH NODES: Negative to palpation. DIAGNOSTIC STUDIES: EKG reveals sinus rhythm with right bundle branch block. LABORATORY DATA: Potassium is 4.3 and creatinine is 1.25. Hemoglobin is 14.7. IMPRESSION: 1. Heart failure with preserved ejection fraction. 2. Diastolic dysfunction. 3. History of a stroke. RECOMMENDATIONS: The patient should continue to be diuresed. I will also start an LEN inhibitor to help with his heart failure. He will have a nocturnal pulse oximeter tonight to screen him for sleep apnea. Most importantly, we need to make sure that he has arrangements for outpatient followup and to establish himself with a primary care physician.
[2017-06-15] MEDS ORDERED: LISINOPRIL 5 MG TAB PO ONE (11:30)
--- NOTE | 2017-06-15 13:33 | Progress Note ---
Medicine Progress Note Date & Time of Visit: Jun 15, 2017 at 13:33 . Subjective Feels better. Less dyspneic. Persistent nonproductive cough. No chest pain. No fever. No nausea, vomiting, diarrhea. Voiding without difficulty. . Objective Last 8 Hrs Date Time Temp Pulse Resp B/P (MAP) Pulse Ox O2 Delivery O2 Flow Rate FiO2 06/15/17 12:03 Nasal Cannula 3.0 06/15/17 12:00 36.5 77 18 107/62 (77) 94 06/15/17 11:12 80 16 95 Nasal Cannula 3.0 06/15/17 08:05 Nasal Cannula 3.0 06/15/17 07:25 36.8 75 20 117/69 (85) 92 06/15/17 06:57 56 16 95 Nasal Cannula 3.0 Physical Exam: General- no distress Neck- + JVD Lungs- diffuse moderate wheezing Heart- RRR, no murmur or gallop appreciated Abdomen- obese, soft, nontender Extremities- 2-3+ pretibial and pedal edema Neuro- alert . Laboratory Results: Last 24 Hours Test 06/15/17 05:58 White Blood Count 14.48 K/uL Red Blood Count 4.74 M/uL Hemoglobin 14.7 g/dL Hematocrit 46.2 % Mean Corpuscular Volume 97.5 fL Mean Corpuscular Hemoglobin 31.0 pg Mean Corpuscular Hemoglobin Concent 31.8 g/dl RDW Standard Deviation 50.9 fL RDW Coefficient of Variation 14.4 % Platelet Count 310 K/uL Mean Platelet Volume 9.3 fL Sodium Level 136 mmol/L Potassium Level 4.3 mmol/L Chloride Level 97 mmol/L Carbon Dioxide Level 33 mmol/L Anion Gap 6.0 mmol/L Blood Urea Nitrogen 25 mg/dl Creatinine 1.25 mg/dl Est Creatinine Clear Calc Drug Dose 76.9 ml/min Estimated GFR () 69.6 Estimated GFR (Non- 60.0 BUN/Creatinine Ratio 20.3 Random Glucose 146 mg/dl Calcium Level 9.6 mg/dl Magnesium Level 2.2 mg/dl Assessment & Plan CHF Presented with dyspnea, worsening edema. Echocardiogram showed mild concentric left ventricular hypertrophy. Probable acute on chronic left ventricular diastolic heart failure with possible right-sided failure as well. Continue IV diuretics. CORONARY ARTERY DISEASE History of myocardial infarction, details not yet available. No anginal symptoms. Continue aspirin, metoprolol, lipid management. CEREBROVASCULAR DISEASE History of stroke or TIA. Continue aspirin and lipid management. PT, OT evals. EXACERBATION COPD No infiltrates on chest x-ray. Cough and wheezing could be secondary to bronchitis or CHF. Receiving methylprednisolone, albuterol nebs, doxycycline. Transition to oral steroid therapy with prednisone. SUSPECTED SLEEP APNEA Old records requested. CKD History of worsening renal function associated with diuretics. Creatinine day of admission was 0.9. Creatinine today = 1.25. Follow. BPH Continue tamsulosin. VTE PROPHYLAXIS SQ enoxaparin. INCOMPLETE DATA Old records requested. DISPOSITION To be determined. Internal Medicine follow-up with Dr. Saumel Reynolds (has appointment for to get established). Daughter Kaci given update by phone. She was able to provide some background information. She is concerned about the patient's abdominal distention and requests an ultrasound or PET scan for evaluation. Explained that PET scans cannot be performed in the inpatient setting, but an ultrasound can be obtained. She requests consultations with Cardiology, Pulmonary Medicine, Nephrology. . Current Inpatient Medications: Current Inpatient Medications Medications (Trade) Dose Ordered Sig/Jelly Route Start Time Stop Time Status Last Admin Dose Admin Albuterol/ Ipratropium (Duoneb) 3 ml QIDR INH 06/14/17 08:00 07/14/17 07:59 06/15/17 11:12 3 ML Methylprednisolone Sodium Succinate 40 mg/Syringe 0.64 ml @ 1.5 mls/min Q8H IV 06/14/17 12:00 07/14/17 11:59 06/15/17 11:31 1.5 MLS/MIN Furosemide 40 mg/ Syringe 4 ml @ 4 mls/min BID17 IV 06/14/17 09:00 07/14/17 08:59 06/15/17 09:00 4 MLS/MIN Aspirin (Ecotrin Tab) 81 mg DAILY PO 06/14/17 09:00 07/14/17 08:59 06/15/17 08:22 81 MG Metoprolol Succinate (Toprol Xl Tab) 25 mg DAILY PO 06/14/17 09:00 07/14/17 08:59 06/15/17 08:22 25 MG Tamsulosin HCl (Flomax Cap) 0.4 mg QPM PO 06/14/17 21:00 07/14/17 20:59 06/14/17 20:17 0.4 MG Pantoprazole Sodium (Protonix Tab) 40 mg QAM PO 06/14/17 09:00 07/14/17 08:59 06/15/17 08:22 40 MG Miscellaneous Information (Order Awaiting Action) 1 ea QS N/A 06/14/17 08:00 07/14/17 07:59 Enoxaparin Sodium (Lovenox Inj) 40 mg Q24H SC 06/14/17 09:00 07/14/17 08:59 06/15/17 08:22 40 MG Acetaminophen (Tylenol Tab) 650 mg Q4H PRN PO 06/14/17 06:00 07/14/17 05:59 Al Hydrox/Mg Hydrox/Simethicone (Maalox Max Susp) 15 ml Q4H PRN PO 06/14/17 06:00 07/14/17 05:59 Doxycycline Hyclate (Vibramycin Cap) 100 mg BID PO 06/14/17 09:00 06/21/17 08:59 06/15/17 08:22 100 MG Potassium Chloride (Klor-Con Tab) 20 meq BID PO 06/14/17 21:00 07/14/17 20:59 06/15/17 08:22 20 MEQ Lisinopril (Zestril Tab) 5 mg QAM PO 06/16/17 09:00 07/16/17 08:59
--- NOTE | 2017-06-15 16:17 | Nephrology Consultation ---
Nephrology Consultation Date & Providers Date of Consultation: Jun 15, 2017. Primary Care Provider: Samuel Reynolds M.D. Referring Provider: Reason for Consultation Evaluation and management for acute kidney injury with history of chronic kidney disease. History of Present Illness Mr. Michaels this 66-year-old past medical history significant for stage III chronic kidney hypertension diastolic CHF COPD admitted with acute CHF exacerbation. Nephrologic consult was requested as patient developed acute kidney injury with known history of chronic kidney disease. Electronic medical records including labs and imaging are reviewed in detail during patient's visit. Celio recently moved to the area from [place] so prior records were not available at this point. Patient reports having history stage 3 chronic kidney disease, has been following with a basketball scout for last almost 1 year however baseline creatinine or other records are not available. No history of diabetes or proteinuria. He has diastolic CHF and he was supposed to be on diuretics however at some point his diuretics was stopped due to effect on his renal function. He presented to emergency room yesterday with shortness of breath. On admission he was found to have CHF exacerbation and possible COPD exacerbation as well. He was started on IV Lasix 40 mg twice a day and IV steroid. Has been responding adequately to current dose of diuretics and has been net negative more than 1.5 L over last 24 hours. On admission his creatinine was 0.9 which increased to 1.3 this morning, all electrolyte acceptable. Urinalysis negative for hematuria, proteinuria pyuria. Patient could not provide detailed information about his medications however currently he is on lisinopril 5 mg p.o. daily. Echo on admission showed EF 60-65%, grade 2 diastolic dysfunction, no significant valvular abnormality. Overall shortness of breath slightly better than yesterday but still getting quite short of breath even during the visit. Denies voiding symptoms He reports adequate urine output has not been taking any NSAIDs. Has 47 years history of smoking quit smoking in 2015. Allergies Coded Allergies: No Known Allergies (Unverified , 06/14/17) Inpatient Medications Current Inpatient Medications Medications (Trade) Dose Ordered Sig/Jelly Route Start Time Stop Time Status Last Admin Dose Admin Albuterol/ Ipratropium (Duoneb) 3 ml QIDR INH 06/14/17 08:00 07/14/17 07:59 06/15/17 15:25 3 ML Methylprednisolone Sodium Succinate 40 mg/Syringe 0.64 ml @ 1.5 mls/min Q8H IV 06/14/17 12:00 07/14/17 11:59 06/15/17 11:31 1.5 MLS/MIN Furosemide 40 mg/ Syringe 4 ml @ 4 mls/min BID17 IV 06/14/17 09:00 07/14/17 08:59 06/15/17 09:00 4 MLS/MIN Aspirin (Ecotrin Tab) 81 mg DAILY PO 06/14/17 09:00 07/14/17 08:59 06/15/17 08:22 81 MG Metoprolol Succinate (Toprol Xl Tab) 25 mg DAILY PO 06/14/17 09:00 07/14/17 08:59 06/15/17 08:22 25 MG Tamsulosin HCl (Flomax Cap) 0.4 mg QPM PO 06/14/17 21:00 07/14/17 20:59 06/14/17 20:17 0.4 MG Pantoprazole Sodium (Protonix Tab) 40 mg QAM PO 06/14/17 09:00 07/14/17 08:59 06/15/17 08:22 40 MG Miscellaneous Information (Order Awaiting Action) 1 ea QS N/A 06/14/17 08:00 07/14/17 07:59 Enoxaparin Sodium (Lovenox Inj) 40 mg Q24H SC 06/14/17 09:00 07/14/17 08:59 06/15/17 08:22 40 MG Acetaminophen (Tylenol Tab) 650 mg Q4H PRN PO 06/14/17 06:00 07/14/17 05:59 Al Hydrox/Mg Hydrox/Simethicone (Maalox Max Susp) 15 ml Q4H PRN PO 06/14/17 06:00 07/14/17 05:59 Doxycycline Hyclate (Vibramycin Cap) 100 mg BID PO 06/14/17 09:00 06/21/17 08:59 06/15/17 08:22 100 MG Potassium Chloride (Klor-Con Tab) 20 meq BID PO 06/14/17 21:00 07/14/17 20:59 06/15/17 08:22 20 MEQ Lisinopril (Zestril Tab) 5 mg QAM PO 06/16/17 09:00 07/16/17 08:59 Family History No pertinent family history Social History Smoking Status: Former Smoker Marital Status: Review of Systems A complete review of systems was performed. Pertinent positives are noted above. All other systems are negative. Physical Exam Date Time Temp Pulse Resp B/P (MAP) Pulse Ox O2 Delivery O2 Flow Rate FiO2 06/15/17 15:45 36.5 79 20 120/69 (86) 92 Room Air 3.0 06/15/17 15:25 77 16 95 Nasal Cannula 3.0 06/15/17 12:03 Nasal Cannula 3.0 06/15/17 12:00 36.5 77 18 107/62 (77) 94 06/15/17 11:12 80 16 95 Nasal Cannula 3.0 06/15/17 08:05 Nasal Cannula 3.0 06/15/17 07:25 36.8 75 20 117/69 (85) 92 06/15/17 06:57 56 16 95 Nasal Cannula 3.0 06/15/17 04:00 Nasal Cannula 06/15/17 03:55 36.8 72 20 119/72 (88) 93 Nasal Cannula 3.5 06/14/17 23:59 Nasal Cannula 06/14/17 23:16 36.7 76 20 119/69 (86) 93 Nasal Cannula 3.5 06/14/17 20:21 36.8 77 20 121/73 (89) 94 Nasal Cannula 2.0 06/14/17 20:00 Nasal Cannula 06/14/17 19:45 79 16 96 Nasal Cannula 2.0 06/14/17 16:07 36.4 88 22 117/72 (87) 95 Nasal Cannula 2.0 GENERAL: middle aged male, AAA x 3, pleasant, healthy-appearing, not in any distress. HEENT: Atraumatic, normocephalic. NECK: Supple, no JVD, no carotid bruit appreciated. ENT: No sinus tenderness MOUTH and THROAT: Moist oral mucosa, no oral ulcer or pharyngeal erythema RESPIRATORY: diffuse wheezes, crackles bilaterally CARDIOVASCULAR: S1, S2 normal, rate rhythm regular. ABDOMEN: Soft, nontender, positive bowel sound. MUSCULOSKELETAL: No CVA tenderness. No joint swelling, erythema or tenderness. Normal range of motion. SKIN: No skin rash EXTREMITY: 2 + B/L lower extremity edema NEURO: No gross focal neurological deficit, speech fluent. PSYCHIATRY: Normal mood and judgment Laboratory Results Last 24 Hours Test 06/15/17 05:58 White Blood Count 14.48 K/uL Red Blood Count 4.74 M/uL Hemoglobin 14.7 g/dL Hematocrit 46.2 % Mean Corpuscular Volume 97.5 fL Mean Corpuscular Hemoglobin 31.0 pg Mean Corpuscular Hemoglobin Concent 31.8 g/dl RDW Standard Deviation 50.9 fL RDW Coefficient of Variation 14.4 % Platelet Count 310 K/uL Mean Platelet Volume 9.3 fL Sodium Level 136 mmol/L Potassium Level 4.3 mmol/L Chloride Level 97 mmol/L Carbon Dioxide Level 33 mmol/L Anion Gap 6.0 mmol/L Blood Urea Nitrogen 25 mg/dl Creatinine 1.25 mg/dl Est Creatinine Clear Calc Drug Dose 76.9 ml/min Estimated GFR () 69.6 Estimated GFR (Non- 60.0 BUN/Creatinine Ratio 20.3 Random Glucose 146 mg/dl Calcium Level 9.6 mg/dl Magnesium Level 2.2 mg/dl Impression (1) [place] (acute kidney injury) (2) CKD (chronic kidney disease) stage 3, GFR 30-59 ml/min (3) CHF (congestive heart failure) (4) COPD (chronic obstructive pulmonary disease) 66-year-old gentlemen with morbid obesity, hypertension, COPD, CHF with diastolic dysfunction admitted to the hospital with CHF exacerbation. Has history of stage 3 chronic kidney disease however baseline unknown, on admission creatinine was 0.9 which worsened to 1.3. Urinalysis negative for hematuria, proteinuria pyuria. No history of diabetes or proteinuria. Denies any voiding symptoms. He has been on IV Lasix 40 mg twice a day a with good response, net negative more than 1 L in last 24 hours. Still continues to be significantly volume overloaded. Electrolyte remain acceptable. 2D echo showed EF 60-65%, grade 2 diastolic dysfunction and no significant valvular abnormality. Recommendations --agree with continuing on Lasix 40 mg IV twice a day, aim for net negative ~1 L per day, may have to accept slightly azotemia to achieve euvolemia. However since baseline creatinine is not clear, with patient's history he may have baseline creatinine somewhere around 1.5-2 at least --check renal function electrolyte daily --while diuresing to improve volume status, as blood pressure well control, suggest holding LEN-inhibitor ARB for now --avoid hypotension, avoid all nephrotoxic medications --will review the records from prior physicians when available Thank you for allowing me to participate in your patient's care. It was a pleasure to see Celio
--- NOTE | 2017-06-15 18:32 | DIAGNOSTIC IMAGING REPORT ---
ABDOMINAL ULTRASOUND COMPLETE HISTORY: abdominal distention. COMPARISON: None. FINDINGS: Suboptimal study due to the overlapping bowel gas and patient's body habitus. Pancreas: The pancreas demonstrates a normal echotexture. Liver: A 2.9 x 2.9 x 2.0 cm hyperechoic area within the left hepatic lobe. This is technically indeterminate by ultrasound but favors a hemangioma. Gallbladder: Completely filled with stones. Gallbladder wall is top normal thickness measuring 2.7 cm. CBD: 4 mm. Kidneys: Not well visualized. No hydronephrosis. The right kidney measures 11.2 cm the left kidney measures 13.2 cm. Spleen: Normal in size. Aorta: Proximal abdominal aorta is normal in caliber measuring 2.7 cm. The mid to distal aorta is obscured by overlying bowel gas. IVC: Patent. IMPRESSION: 1. The gallbladder is completely filled with gallstones. No definite gallbladder wall thickening. 2. Normal caliber common bile duct. 3. A 2.9 x 2.9 x 2.0 cm hyperechoic area within the left hepatic lobe. This is technically indeterminate by ultrasound but favors a hemangioma. Electronically signed by: Magnus Obando M.D. 06/15/2017 6:31 PM Dictated Date/Time: 06/15/2017 6:28 PM
[2017-06-15] MEDS: TAMSULOSIN HCL 0.4 MG CAP PO SCH (21:46)
[2017-06-16] VITALS (11 sets, daily range): BP systolic 106–125; BP diastolic 65–70; PULSE 77–96; TEMP 36.5–36.7; O2SAT 90–95
[2017-06-16] MEDS: ALBUT/IPRATROP 3MG/0.5MG NEB 3 ML VIAL INH SCH ×5 (04:16→19:30)
[2017-06-16 06:26] LABS: BUN/CREATININE RATIO 24.2 (10-20); CREATININE 1.38 mg/dl (0.60-1.40); POTASSIUM 4.1 mmol/L (3.5-5.1)
[2017-06-16] MEDS: POTASSIUM CHLORIDE 20 MEQ TABCR PO SCH ×2 (08:40→22:18)
[2017-06-16] MEDS: METOPROLOL SUCC 25MG EXT REL TAB PO SCH (08:40)
[2017-06-16] MEDS: LISINOPRIL 5 MG TAB PO SCH (08:40)
[2017-06-16] MEDS: ASPIRIN 81 MG ECTAB PO SCH (08:40)
[2017-06-16] MEDS: DOXYCYCLINE HYCLATE 100 MG CAP PO SCH ×2 (08:40→22:18)
[2017-06-16] MEDS: PANTOprazole SOD 40 MG TAB PO SCH (08:40)
[2017-06-16] MEDS: FUROSEMIDE INJ 40 MG in SYRINGE 0 ML IV SCH ×2 (08:40→18:08)
[2017-06-16] MEDS: ENOXAPARIN 40 MG/0.4 ML SYR SC SCH (08:41)
--- NOTE | 2017-06-16 10:58 | Nephrology Progress Note ---
Nephrology Progress Note Date of Service Jun 16, 2017. Chief Complaint F/U for acute kidney injury with history of chronic kidney disease. Subjective Celio Was seen and examined in his room this morning. Overall he is doing much better, did shortness of breath seems to be improving. Continues to have significant lower extremity edema. Responding to Lasix 40 milligram IV twice a day, net-2 0.4 liters in last 24 hours. Creatinine slightly worsened to 1.4, other electrolyte acceptable. Review of Systems A complete review of systems was performed. Pertinent positives are noted above. All other systems are negative. Vital Signs Last 8 Hrs Date Time Temp Pulse Resp B/P (MAP) Pulse Ox O2 Delivery O2 Flow Rate FiO2 06/16/17 08:00 Room Air 06/16/17 07:02 36.5 82 19 120/69 (86) 90 Room Air 06/16/17 07:00 87 16 92 Room Air 06/16/17 04:39 36.7 77 20 125/65 (85) 92 Nasal Cannula 1.0 06/16/17 04:16 96 16 95 Room Air 1.0 06/16/17 04:00 Nasal Cannula 3.0 Last Recorded Weight Weight (Kilograms): 131.500 Physical Exam GENERAL: Middle-aged male, morbidly obese, AAA x 3, pleasant, not in any distress. NECK: Supple, no JVD. RESPIRATORY: Bilateral diffuse wheezes and crackles CARDIOVASCULAR: S1, S2 normal, rate rhythm regular. EXTREMITY: 2+ lower extremity edema NEURO: speech fluent. PSYCHIATRY: Normal mood and judgment Family History No pertinent family history Social History Marital Status: Laboratory Results Past 24 Hours 06/16/17 05:24 Test 06/16/17 05:24 Anion Gap 2.0 mmol/L (3-11) Est Creatinine Clear Calc Drug Dose 69.6 ml/min Estimated GFR () 61.7 Estimated GFR (Non- 53.3 BUN/Creatinine Ratio 24.2 (10-20) Calcium Level 9.0 mg/dl (8.5-10.1) Allergies Coded Allergies: No Known Allergies (Unverified , 06/14/17) Medications Current Inpatient Medications Medications (Trade) Dose Ordered Sig/Jelly Route Start Time Stop Time Status Last Admin Dose Admin Albuterol/ Ipratropium (Duoneb) 3 ml QIDR INH 06/14/17 08:00 12/23/17 07:59 06/16/17 07:00 3 ML Furosemide 40 mg/ Syringe 4 ml @ 4 mls/min BID17 IV 06/14/17 09:00 07/14/17 08:59 06/16/17 08:40 4 MLS/MIN Aspirin (Ecotrin Tab) 81 mg DAILY PO 06/14/17 09:00 07/14/17 08:59 06/16/17 08:40 81 MG Metoprolol Succinate (Toprol Xl Tab) 25 mg DAILY PO 06/14/17 09:00 07/14/17 08:59 06/16/17 08:40 25 MG Tamsulosin HCl (Flomax Cap) 0.4 mg QPM PO 06/14/17 21:00 07/14/17 20:59 06/15/17 21:46 0.4 MG Pantoprazole Sodium (Protonix Tab) 40 mg QAM PO 06/14/17 09:00 07/14/17 08:59 06/16/17 08:40 40 MG Miscellaneous Information (Order Awaiting Action) 1 ea QS N/A 06/14/17 08:00 07/14/17 07:59 Enoxaparin Sodium (Lovenox Inj) 40 mg Q24H SC 06/14/17 09:00 07/14/17 08:59 06/16/17 08:41 40 MG Acetaminophen (Tylenol Tab) 650 mg Q4H PRN PO 06/14/17 06:00 07/14/17 05:59 Al Hydrox/Mg Hydrox/Simethicone (Maalox Max Susp) 15 ml Q4H PRN PO 06/14/17 06:00 07/14/17 05:59 Doxycycline Hyclate (Vibramycin Cap) 100 mg BID PO 06/14/17 09:00 06/21/17 08:59 06/16/17 08:40 100 MG Potassium Chloride (Klor-Con Tab) 20 meq BID PO 06/14/17 21:00 07/14/17 20:59 06/16/17 08:40 20 MEQ Lisinopril (Zestril Tab) 5 mg QAM PO 06/16/17 09:00 07/16/17 08:59 06/16/17 08:40 5 MG Prednisone (PredniSONE TAB) 40 mg DAILY PO 06/16/17 09:00 07/16/17 08:59 06/16/17 08:40 40 MG Impression (1) [place] (acute kidney injury) (2) CKD (chronic kidney disease) stage 3, GFR 30-59 ml/min (3) CHF (congestive heart failure) (4) COPD (chronic obstructive pulmonary disease) 66-year-old gentlemen with stage III CKD, morbid obesity, hypertension, COPD, CHF with diastolic dysfunction admitted to the hospital with CHF exacerbation. Has history of stage 3 chronic kidney disease baseline creatinine around 1.3, on admission creatinine was 0.9 which worsened to 1.3. Urinalysis negative for hematuria, proteinuria pyuria. No history of diabetes or proteinuria. He was started on IV Lasix 40 mg twice a day a with good response, net negative more than 2.4 L in last 24 hours. Still continues to be significantly volume overloaded. Electrolyte remain acceptable. Records from his prior hospital visits and physician visits were reviewed in detail. Has stage 3 chronic kidney disease most likely secondary to type 2 cardiorenal syndrome with significant diastolic dysfunction requiring high dose of diuretics at baseline causing chronic intravascular volume depletion. Urinalysis unremarkable. Previously he was on torsemide 100 milligram twice a day however it was discontinued after hospital admission in March when creatinine peaked to 1.6. 2D echo showed EF 60-65%, grade 2 diastolic dysfunction and no significant valvular abnormality. No history of significant coronary artery disease. Has extensive history of smoking for 47 years quit smoking in 2014, has advanced COPD as well as sleep apnea. Recommendations --continue on Lasix 40 mg IV twice a day, aim for net negative ~1 L per day. Creatinine slightly worsened to 1.4 which is still pretty close to his baseline and has decent GFR --check renal function daily and magnesium and phosphate every other day --hold LEN-inhibitor / ARB for now --avoid hypotension, avoid all nephrotoxic medications Will follow
--- NOTE | 2017-06-16 13:57 | Pulmonary Consultation ---
History General Date of Service: Jun 16, 2017. Stated Complaint: Chf, Copd HPI The patient is a 66 year old male who presents to [facility] with complaints of Chf, Copd. The patient's primary care provider is Samuel Reynolds M.D.. Mr. Montgomery is a 66-year old man who recently moved to the area from [place]. He has a past medical history of COPD (FEV 1 unknown), on LTOT of 2L/ min, CHF with preserved EF, chronic kidney disease-Stage III, and PR who present to ER on 06/14/2017 with 2-hour history of worsening shortness of breath associated with substernal chest pain. He is on a standing dose of Lasix 40 mg daily but has run out since moving to [place]. He has noticed increased bilateral lower extremity edema, orthopnea, and paroxysmal nocturnal dyspnea. He has about 15 lb weight gain over the last two weeks. He takes Bresvpi inhaler 1 puff BID and albuterol prn for home respiratory inhalers. His last hospitalization for COPD was 4 months ago in [place]. He has a chronic cough with whitish sputum. His ET is about 50 feet. He has chronic dyspnea on exertion. Sleep study that showed JALYN, with AHI > 30 from what he can remember. He had a PFT done in [place], but unsure of results. He recently was in the ER on 06/10/2017 with similar complaints. He was given Lasix and duonebs and discharged home. VS on admission, temperature 36.8, pulse 72, RR 24, BP 112/67, Pulse oximetry 95 % on 6L/min nasal canula. Laboratory data on admission was significant for CO2 35, BUN 19, Cr 0.9, Glucose 101 and Calcium 8.2. Troponin < 0.015, proBNP 62. Albumin 3.2. LFTs were within normal limits. WBC 7, hemoglobin 12, Hematocrit 41.9 and platelets 258. His coags were within normal limits. UA was unremarkable. CXR showed slight improvement of interstitial thickening and edema from previous chest imaging done on 06/10/2017. In the Emergency Room, he was given ASA 325 mg, Albuterol nebulizer, Solumedrol 40 mg and Lasix 40 mg IV. He was admitted for COPD vs CHF exacerbation. He had a bilateral lower extremity doppler done to rule out DVT which was negative. The Abdominal US showed cholelithiasis without gallbladder wall thickening. TTE showed * Normal LV chamber size with mild concentric LVH. * Normal LV systolic function, EF 60-65%. * No segmental left ventricular wall motion abnormalities are noted. * Grade II diastolic dysfunction. * Poorly visualized valvular structures with no significant stenosis or regurgitation by Doppler. * Inadequate TR jet to accurately assess PASP. From a respiratory standpoint, his medications include: Prednisone 40 mg daily, Lasix 40 mg BID, pantoprazole 40 mg daily, Lovenox 40 mg q24h, doxycycline 100 mg BID and Duoneb nebulizer q4-6 hours. Solumedrol 40 mg q8h has been discontinued. Since admission, he had diuresed a total of 4.6 L, with a cumulative output of 2.8L. He had an overnight oximetry, however very little data was downloaded, therefore test will be repeated again tonight. VS within the last 24 hours show a Tmax of 36.7, BP 114/69-125/65, HR 77-96, RR16-20, SaO2 91-95% on 1-3L NC. Laboratory data this morning shows an increase in WBC to 14. CO2 rise 33 to 37. Today, he denies any shortness of breath,chest pain, dyspnea on exertion or at rest. He still has a cough with deep inspiration. Historian: patient Onset: last week Severity: moderate Complaint Status: persistent Review of Systems Constitutional: No fever, No chills, No sweats, No weakness, No fatigue Respiratory: + cough, + sputum, + wheezing, + shortness of breath, + dyspnea on exertion, No dyspnea at rest, No hemoptysis Cardiovascular: + orthopnea, + edema, No chest pain, No palpitations Abdomen: No pain, No nausea, No vomiting, No diarrhea, No constipation Musculoskeletal: + joint pain (bilateral knee pain), + swelling, No muscle pain , No calf pain Genitourinary - Male: No hematuria, No dysuria, No urinary frequency, No urinary urgency Neurologic: No memory loss, No weakness, No numbness/tingling, No vertigo, No balance problems Psychiatric: No depression symptoms, No anxiety, No insomnia Endocrine: No fatigue Hematologic / Lymphatic: No abnormal bleeding/bruising Integumentary: No rash Allergic / Immunologic: No environmental allergies, No seasonal allergies Constitutional: reports: as stated in HPI Eyes: reports: as stated in HPI ENT: reports: as stated in HPI Cardiovascular: reports: as stated in HPI Respiratory: reports: as stated in HPI Gastrointestinal: reports: as stated in HPI Genitourinary - Male: reports: as stated in HPI Musculoskeletal: reports: as stated in HPI Integumentary: reports: as stated in HPI Neurologic: reports: as stated in HPI Psychiatric: reports: as stated in HPI Endocrine: as stated in HPI Hematologic / Lymphatic: as stated in HPI Allergic / Immunologic: as stated in HPI All Other Symptoms All Other Systems: Reviewed and Negative Past Medical History Past Medical History: COPD (FEV1 unknown) diastolic CHF PR Family History No pertinent family history Social History He has previous history of smoking. Quit in__. He has a __pack-year history. He denies any alcohol or illicit drug use. Smoking Status: Former Smoker Marital status: Allergies Coded Allergies: No Known Allergies (Unverified , 06/14/17) Current Medications Reported Home Medications Medications Dose Route/Sig Max Daily Dose Days Date Category Dose Instructions Lasix (Furosemide) 40 Mg Tab 40 Mg PO DAILY 06/10/17 Rx Fenoglide (Fenofibrate) 120 Mg Tab 120 Mg PO DAILY 06/10/17 Reported Proventil 0.083% 2.5MG/3ML (Albuterol Sulf) 2.5 Mg/3 Ml Nebu 2.5 Mg INH QID PRN 06/10/17 Reported Aspirin Ec (Aspirin) 81 Mg Tab 81 Mg PO DAILY 06/10/17 Reported Vitamin D 96437 Unit (Ergocalciferol) 50,000 Unit Cap 50,000 Unit PO WK 06/10/17 Reported TAKES ON SUNDAYS. Bevespi Aerosphere 9-4.8 Mcg/Act (Glycopyrrolate-Formoterol Fuma) 1 Aer Aer 1 Puff INH BID 06/10/17 Reported Toprol-Xl (Metoprolol Succinate) 25 Mg Tabcr 25 Mg PO DAILY 06/10/17 Reported Flomax (Tamsulosin Hcl) 0.4 Mg Cap 0.4 Mg PO QPM 06/10/17 Reported Physical Physical Exam Vital Signs: Date Time Temp Pulse Resp B/P (MAP) Pulse Ox O2 Delivery O2 Flow Rate FiO2 06/16/17 04:39 36.7 77 20 125/65 (85) 92 Nasal Cannula 1.0 11/25/17 04:16 96 16 95 Room Air 1.0 06/16/17 04:00 Nasal Cannula 3.0 06/16/17 00:13 36.6 80 20 114/69 (84) 91 06/15/17 23:59 Nasal Cannula 3.0 06/15/17 20:30 Nasal Cannula 3.0 06/15/17 19:43 36.8 82 20 111/64 (80) 94 Room Air 06/15/17 19:00 78 16 95 Nasal Cannula 3.0 06/15/17 16:02 Nasal Cannula 3.0 06/15/17 15:45 36.5 79 20 120/69 (86) 92 Room Air 3.0 06/15/17 15:25 77 16 95 Nasal Cannula 3.0 06/15/17 12:03 Nasal Cannula 3.0 06/15/17 12:00 36.5 77 18 107/62 (77) 94 06/15/17 11:12 80 16 95 Nasal Cannula 3.0 06/15/17 08:05 Nasal Cannula 3.0 06/15/17 07:25 36.8 75 20 117/69 (85) 92 06/15/17 06:57 56 16 95 Nasal Cannula 3.0 General Appearance: WD/WN, NO APPARENT DISTRESS, obese Head: NORMOCEPHALIC, ATRAUMATIC Eyes: PERRLA, NO DISCHARGE, EOMI, SCLERAE NORMAL ENT: NORMAL MOUTH EXAM, NORMAL THROAT EXAM (in) Neck: NORMAL RANGE OF MOTION, NO TENDERNESS, TRACHEA MIDLINE, NO STRIDOR, SUPPLE Respiratory: other (decreased breath sound bilaterally) Cardiovasular: REGULAR RATE/RHYTHM, NORMAL S1S2, NO M/G/R Abdomen: NON TENDER, NORMAL BOWEL SOUNDS, NO REBOUND, other (obese) Back: NORMAL INSPECTION, NO MIDLINE TENDERNESS, NO CVA TENDERNESS Upper Extremities: NO EDEMA, NO DEFORMITY, NORMAL ROM, other (no clubbing, no cyanosis) Edema: Bilateral LE (3+) Neuro: ALERT, ORIENTED x 3, speech abnormal Psychiatric: NORMAL AFFECT, NO SUICIDAL IDEATION, CONTRACTS FOR SAFETY Diagnostics Labs Results Past 24 Hours Test 06/16/17 05:24 Range/Units Sodium Level 134 136-145 mmol/L Potassium Level 4.1 3.5-5.1 mmol/L Chloride Level 95 98-107 mmol/L Carbon Dioxide Level 37 21-32 mmol/L Anion Gap 2.0 3-11 mmol/L Blood Urea Nitrogen 33 7-18 mg/dl Creatinine 1.38 0.60-1.40 mg/dl Est Creatinine Clear Calc Drug Dose 69.6 ml/min Estimated GFR () 61.7 Estimated GFR (Non- 53.3 BUN/Creatinine Ratio 24.2 10-20 Random Glucose 107 70-99 mg/dl Calcium Level 9.0 8.5-10.1 mg/dl Diagnostic Radiology CHEST 2 VIEWS ROUTINE 06/14/2017 CLINICAL HISTORY: Respiratory distress. COMPARISON STUDY: 06/10/2017 FINDINGS: The heart is at the upper limits of normal in size. There is improving interstitial thickening/edema. There is no lobar consolidation. There are no significant pleural effusions.[ IMPRESSION: Slight improvement in the previously described interstitial thickening/edema. No evidence of focal pulmonary consolidation ULTRASOUND VENOUS DOPPLER LWR EXT BILA 06/14/2017 CLINICAL HISTORY: Lower extremity swelling. COMPARISON STUDY: No previous studies for comparison. FINDINGS: Real-time and color flow Doppler imaging were performed. Flow was seen within the femoral, popliteal and calf veins with no intraluminal thrombus demonstrated. The saphenous vein is patent. IMPRESSION: No evidence of lower extremity DVT. ABDOMINAL ULTRASOUND COMPLETE HISTORY: abdominal distention. COMPARISON: None. FINDINGS: Suboptimal study due to the overlapping bowel gas and patient's body habitus. Pancreas: The pancreas demonstrates a normal echotexture. Liver: A 2.9 x 2.9 x 2.0 cm hyperechoic area within the left hepatic lobe. This is technically indeterminate by ultrasound but favors a hemangioma. Gallbladder: Completely filled with stones. Gallbladder wall is top normal thickness measuring 2.7 cm. CBD: 4 mm. Kidneys: Not well visualized. No hydronephrosis. The right kidney measures 11.2 cm the left kidney measures 13.2 cm. Spleen: Normal in size. Aorta: Proximal abdominal aorta is normal in caliber measuring 2.7 cm. The mid to distal aorta is obscured by overlying bowel gas. IVC: Patent. IMPRESSION: 1. The gallbladder is completely filled with gallstones. No definite gallbladder wall thickening. 2. Normal caliber common bile duct. 3. A 2.9 x 2.9 x 2.0 cm hyperechoic area within the left hepatic lobe. This is technically indeterminate by ultrasound but favors a hemangioma. EKG EKG 06/14/2017 Ventricular rate 73 bpm. Poor data quality, interpretation may be adversely affected Normal sinus rhythm Low voltage QRS Borderline ECG Impression Assessment and Plan COPD (FEV1-unknown) Chronic hypoxic respiratory failure Morbid obesity Obesity hypoventilation syndrome JALYN Diastolic dysfunction, grade II CKD Stage III Cholelithiasis Mr. Montgomery is 66-year old male who presented with acute on chronic respiratory failure most likely secondary to fluid overload from noncompliance with diuretic therapy. Nonetheless, dyspnea and shortness of breath with LE edema is likely multifactorial in nature. Due to his body habitus, it is likely that he has components of both obesity hypoventilation syndrome and obstructive sleep apnea. He has mildly elevated CO2. this may be a compensation for chronic hypercapnic respiratory failure and from metabolic alkalosis from chronic diuretic use. He has both diastolic dysfunction grade II and CKD stage III, which can both predispose him to worsened shortness of breath and lower extremity edema. LE dopplers are negative. He has complained of increased cough, as well so I do not think that is unreasonable to treat him for COPD exacerbation at this time. RECOMMENDATIONS Continue with supplemental oxygenation to maintain SaO2 between 88-92%. Recommend obtaining ABG, to evaluate degree of hypercapnia. Continue with Prednisone and taper over 10-14 days. Complete 5 day course of antibiotics. Continue with nebulizers q4-6h. Agree with nocturnal oximetry, as he likely has JALYN. He may benefit from CPAP at night. He should have full PFT and polysomnography done as outpatient. Continue with diuresis has his kidney function tolerates. Nephrology is on board and following. Cardiology is on board and following as well for fluid overload. Encouraged weight loss and exercise. This may be difficult with his underlying comorbidities. Recommend PT/OT and nutrition consult. In regards to cholelithiasis, I will leave this to the management of the hospitalist team. Continue with DVT ppx. I appreciate the consult. Please contact me if you have any other questions or concerns. He should follow up with the [facility] within 2 weeks post hospital discharge.
--- NOTE | 2017-06-16 14:39 | Cardiology Follow-Up ---
Subjective General Date of Service: Jun 16, 2017. Chief Complaint: follow up volume overload Pt evaluation today including: conversation w/ patient, physical exam History of Present Illness The patient is a 66 year old male who presented with complaints of lower extremity edema and shortness of breath. He has responded thus far to IV diuretic therapy although he states it is not quite back to his previous baseline. Telemetry reveals stable sinus rhythm. Allergies Coded Allergies: No Known Allergies (Unverified , 06/14/17) Social History Smoking Status: Former Smoker Hx Alcohol Use - Type And Amou: No Problem List Medical Problems: (1) CHF (congestive heart failure) Status: Acute (2) CHF (congestive heart failure) Status: Acute (3) COPD (chronic obstructive pulmonary disease) Status: Acute (4) COPD (chronic obstructive pulmonary disease) Status: Acute (5) Dyspnea Status: Acute Physical Exam Vital Signs Last Vital Signs Documentation Date Time Temp Pulse Resp B/P (MAP) Pulse Ox O2 Delivery O2 Flow Rate FiO2 06/16/17 12:00 Room Air 06/16/17 11:17 36.6 83 18 111/65 (80) 91 06/16/17 04:39 1.0 Physical Exam Constitutional: Level of Distress: NAD Neck: supple Lungs: Auscultation: pertinent finding (mildly decreased breath sounds to bases, wheezing noted acetate deep inspirations) Abdomen: Inspection & Palpation: pertinent finding (Mildly distended, no tenderness,) Extremities: pertinent finding (1+ bilateral lower extremity edema) Assessment and Plan Assessment and Plan Impression: 66-year-old male 1. Volume overload due to acute on chronic diastolic heart failure, in setting stage III chronic any disease 2. Underlying COPD Plan: Continue current dose of furosemide 40 mg IV twice a day. Nephrology and pulmonary input noted and appreciated Continue Lovenox for DVT prophylaxis. Laboratory Results Last 24 Hours Test 06/16/17 05:24 Sodium Level 134 mmol/L Potassium Level 4.1 mmol/L Chloride Level 95 mmol/L Carbon Dioxide Level 37 mmol/L Anion Gap 2.0 mmol/L Blood Urea Nitrogen 33 mg/dl Creatinine 1.38 mg/dl Est Creatinine Clear Calc Drug Dose 69.6 ml/min Estimated GFR () 61.7 Estimated GFR (Non- 53.3 BUN/Creatinine Ratio 24.2 Random Glucose 107 mg/dl Calcium Level 9.0 mg/dl
--- NOTE | 2017-06-16 20:48 | Progress Note ---
Medicine Progress Note Date & Time of Visit: Jun 16, 2017 at 10:30 . Subjective Intermittent coughing, nonproductive. Intermittent dyspnea. No chest pain. No nausea or vomiting. No diarrhea. Voiding without difficulty. . Objective Last 8 Hrs Date Time Temp Pulse Resp B/P (MAP) Pulse Ox O2 Delivery O2 Flow Rate FiO2 06/16/17 19:31 79 16 94 Room Air 06/16/17 18:59 36.5 83 20 106/70 (82) 91 Room Air 06/16/17 16:24 Room Air 06/16/17 15:28 36.7 82 20 110/66 (81) 92 Room Air 06/16/17 15:14 84 16 95 Room Air Physical Exam: General- no distress Neck- + JVD Lungs- diffuse moderate wheezing, few scattered rhonchi Heart- RRR, no murmur or gallop appreciated Abdomen- obese, soft, nontender Extremities- 3+ pretibial and pedal edema Neuro- alert . Laboratory Results: Last 24 Hours Test 06/16/17 05:24 Sodium Level 134 mmol/L Potassium Level 4.1 mmol/L Chloride Level 95 mmol/L Carbon Dioxide Level 37 mmol/L Anion Gap 2.0 mmol/L Blood Urea Nitrogen 33 mg/dl Creatinine 1.38 mg/dl Est Creatinine Clear Calc Drug Dose 69.6 ml/min Estimated GFR () 61.7 Estimated GFR (Non- 53.3 BUN/Creatinine Ratio 24.2 Random Glucose 107 mg/dl Calcium Level 9.0 mg/dl Assessment & Plan CHF Presented with dyspnea, worsening edema. Echocardiogram showed mild concentric left ventricular hypertrophy. Probable acute on chronic left ventricular diastolic heart failure with possible right-sided failure as well. Continue IV diuretics. CORONARY ARTERY DISEASE History of myocardial infarction, details not yet available. No anginal symptoms. Continue aspirin, metoprolol, lipid management. CEREBROVASCULAR DISEASE History of stroke or TIA. Continue aspirin and lipid management. PT, OT evals. EXACERBATION COPD No infiltrates on chest x-ray. Cough and wheezing could be secondary to bronchitis or CHF. Received methylprednisolone, albuterol nebs, doxycycline. Transitioned to oral steroid therapy with prednisone. Pulmonary Medicine consulted. SLEEP APNEA Previously diagnosed. Daughter patient indicates intolerance of CPAP. CKD History of worsening renal function associated with diuretics. Nephrology consulted. Creatinine day of admission was 0.9. Creatinine today = 1.38. Follow. BPH Continue tamsulosin. CHOLELITHIASIS Noted on ultrasound of abdomen. Asymptomatic. HEPATIC LESION 2.9 cm lesion noted left hepatic lobe, technically indeterminate by US. Discussed with patient. He indicates that he has been told the past that he had a spot on his liver. Old records requested for baseline info. VTE PROPHYLAXIS SQ enoxaparin. INCOMPLETE DATA Old records requested. DISPOSITION To be determined. Internal Medicine follow-up with Dr. Samuel Reynolds (has appointment for to get established). . Current Inpatient Medications: Current Inpatient Medications Medications (Trade) Dose Ordered Sig/Jelly Route Start Time Stop Time Status Last Admin Dose Admin Albuterol/ Ipratropium (Duoneb) 3 ml QIDR INH 06/14/17 08:00 07/14/17 07:59 06/16/17 19:30 3 ML Furosemide 40 mg/ Syringe 4 ml @ 4 mls/min BID17 IV 06/14/17 09:00 07/14/17 08:59 06/16/17 18:08 4 MLS/MIN Aspirin (Ecotrin Tab) 81 mg DAILY PO 06/14/17 09:00 07/14/17 08:59 06/16/17 08:40 81 MG Metoprolol Succinate (Toprol Xl Tab) 25 mg DAILY PO 06/14/17 09:00 07/14/17 08:59 06/16/17 08:40 25 MG Tamsulosin HCl (Flomax Cap) 0.4 mg QPM PO 06/14/17 21:00 07/14/17 20:59 06/15/17 21:46 0.4 MG Pantoprazole Sodium (Protonix Tab) 40 mg QAM PO 06/14/17 09:00 07/14/17 08:59 06/16/17 08:40 40 MG Miscellaneous Information (Order Awaiting Action) 1 ea QS N/A 06/14/17 08:00 07/14/17 07:59 Enoxaparin Sodium (Lovenox Inj) 40 mg Q24H SC 06/14/17 09:00 07/14/17 08:59 06/16/17 08:41 40 MG Acetaminophen (Tylenol Tab) 650 mg Q4H PRN PO 06/14/17 06:00 07/14/17 05:59 Al Hydrox/Mg Hydrox/Simethicone (Maalox Max Susp) 15 ml Q4H PRN PO 06/14/17 06:00 07/14/17 05:59 Doxycycline Hyclate (Vibramycin Cap) 100 mg BID PO 06/14/17 09:00 06/21/17 08:59 06/16/17 08:40 100 MG Potassium Chloride (Klor-Con Tab) 20 meq BID PO 06/14/17 21:00 07/14/17 20:59 06/16/17 08:40 20 MEQ Lisinopril (Zestril Tab) 5 mg QAM PO 06/16/17 09:00 07/16/17 08:59 06/16/17 08:40 5 MG Prednisone (PredniSONE TAB) 40 mg DAILY PO 06/16/17 09:00 07/16/17 08:59 06/16/17 08:40 40 MG
[2017-06-16] MEDS: TAMSULOSIN HCL 0.4 MG CAP PO SCH (22:18)
[2017-06-17] VITALS (13 sets, daily range): BP systolic 107–127; BP diastolic 56–77; PULSE 68–85; TEMP 36.6–37.1; O2SAT 90–99
[2017-06-17] MEDS: ALBUT/IPRATROP 3MG/0.5MG NEB 3 ML VIAL INH SCH ×4 (07:12→19:12)
[2017-06-17 07:57] LABS: BUN/CREATININE RATIO 25.8 (10-20); CALCIUM 8.8 mg/dl (8.5-10.1); CREATININE 1.24 mg/dl (0.60-1.40); POTASSIUM 3.5 mmol/L (3.5-5.1)
[2017-06-17] MEDS: METOPROLOL SUCC 25MG EXT REL TAB PO SCH (08:28)
[2017-06-17] MEDS: FUROSEMIDE INJ 40 MG in SYRINGE 0 ML IV SCH ×2 (08:29→16:08)
[2017-06-17] MEDS: POTASSIUM CHLORIDE 20 MEQ TABCR PO SCH ×2 (08:29→20:55)
[2017-06-17] MEDS: PANTOprazole SOD 40 MG TAB PO SCH (08:29)
[2017-06-17] MEDS: LISINOPRIL 5 MG TAB PO SCH (08:29)
[2017-06-17] MEDS: DOXYCYCLINE HYCLATE 100 MG CAP PO SCH ×2 (08:29→20:55)
[2017-06-17] MEDS: ASPIRIN 81 MG ECTAB PO SCH (08:29)
[2017-06-17] MEDS: ENOXAPARIN 40 MG/0.4 ML SYR SC SCH (08:30)
--- NOTE | 2017-06-17 10:32 | Nephrology Progress Note ---
Nephrology Progress Note Date of Service Jun 17, 2017. Chief Complaint F/U for acute kidney injury with history of chronic kidney disease. Subjective Celio Was seen and examined in his room this morning. Overall he is doing much better. Lower extremity edema improving. Responding to Lasix 40 milligram IV twice a day, net negative 0.8 liters in last 24 hours. Renal function stable, cr 1.3, other electrolyte acceptable. Review of Systems A complete review of systems was performed. Pertinent positives are noted above. All other systems are negative. Vital Signs Last 8 Hrs Date Time Temp Pulse Resp B/P (MAP) Pulse Ox O2 Delivery O2 Flow Rate FiO2 06/17/17 08:25 36.9 76 18 107/63 (78) 99 06/17/17 08:00 93 Room Air 2.0 06/17/17 07:12 83 16 93 Room Air 06/17/17 05:20 36.6 68 20 118/56 (76) 91 Room Air 06/17/17 04:00 Room Air Last Recorded Weight Weight (Kilograms): 131.500 Physical Exam GENERAL: Middle-aged male, morbidly obese, AAA x 3, pleasant, not in any distress. NECK: Supple, no JVD. RESPIRATORY: Bilateral decreased BS and occasional diffuse wheezes CARDIOVASCULAR: S1, S2 normal, rate rhythm regular. EXTREMITY: 1+ lower extremity edema NEURO: speech fluent. PSYCHIATRY: Normal mood and judgment Family History No pertinent family history Social History Marital Status: Laboratory Results Past 24 Hours 06/17/17 06:52 Test 06/17/17 06:52 Anion Gap 7.0 mmol/L (3-11) Est Creatinine Clear Calc Drug Dose 77.5 ml/min Estimated GFR () 70.3 Estimated GFR (Non- 60.6 BUN/Creatinine Ratio 25.8 (10-20) Calcium Level 8.8 mg/dl (8.5-10.1) Allergies Coded Allergies: No Known Allergies (Unverified , 06/14/17) Medications Current Inpatient Medications Medications (Trade) Dose Ordered Sig/Jelly Route Start Time Stop Time Status Last Admin Dose Admin Albuterol/ Ipratropium (Duoneb) 3 ml QIDR INH 06/14/17 08:00 07/14/17 07:59 06/17/17 07:12 3 ML Furosemide 40 mg/ Syringe 4 ml @ 4 mls/min BID17 IV 06/14/17 09:00 07/14/17 08:59 06/17/17 08:29 4 MLS/MIN Aspirin (Ecotrin Tab) 81 mg DAILY PO 06/14/17 09:00 07/14/17 08:59 06/17/17 08:29 81 MG Metoprolol Succinate (Toprol Xl Tab) 25 mg DAILY PO 06/14/17 09:00 07/14/17 08:59 06/17/17 08:28 25 MG Tamsulosin HCl (Flomax Cap) 0.4 mg QPM PO 06/14/17 21:00 07/14/17 20:59 06/16/17 22:18 0.4 MG Pantoprazole Sodium (Protonix Tab) 40 mg QAM PO 06/14/17 09:00 07/14/17 08:59 06/17/17 08:29 40 MG Miscellaneous Information (Order Awaiting Action) 1 ea QS N/A 06/14/17 08:00 07/14/17 07:59 Enoxaparin Sodium (Lovenox Inj) 40 mg Q24H SC 06/14/17 09:00 07/14/17 08:59 06/17/17 08:30 40 MG Acetaminophen (Tylenol Tab) 650 mg Q4H PRN PO 06/14/17 06:00 07/14/17 05:59 Al Hydrox/Mg Hydrox/Simethicone (Maalox Max Susp) 15 ml Q4H PRN PO 06/14/17 06:00 07/14/17 05:59 Doxycycline Hyclate (Vibramycin Cap) 100 mg BID PO 06/14/17 09:00 06/21/17 08:59 06/17/17 08:29 100 MG Potassium Chloride (Klor-Con Tab) 20 meq BID PO 06/14/17 21:00 07/14/17 20:59 06/17/17 08:29 20 MEQ Lisinopril (Zestril Tab) 5 mg QAM PO 06/16/17 09:00 07/16/17 08:59 06/17/17 08:29 5 MG Prednisone (PredniSONE TAB) 40 mg DAILY PO 06/16/17 09:00 07/16/17 08:59 06/17/17 08:28 40 MG Impression (1) AMERICA (acute kidney injury) (2) CKD (chronic kidney disease) stage 3, GFR 30-59 ml/min (3) CHF (congestive heart failure) (4) COPD (chronic obstructive pulmonary disease) 66-year-old gentlemen with stage III CKD, morbid obesity, hypertension, COPD, CHF with diastolic dysfunction admitted to the hospital with CHF exacerbation. Has history of stage 3 chronic kidney disease baseline creatinine around 1.3, on admission creatinine was 0.9 which worsened to 1.3. Urinalysis negative for hematuria, proteinuria pyuria. No history of diabetes or proteinuria. He was started on IV Lasix 40 mg twice a day a with good response, net negative more than 2.4 L in last 24 hours. Still continues to be significantly volume overloaded. Electrolyte remain acceptable. Records from his prior hospital visits and physician visits were reviewed in detail. Has stage 3 chronic kidney disease most likely secondary to type 2 cardiorenal syndrome with significant diastolic dysfunction requiring high dose of diuretics at baseline causing chronic intravascular volume depletion. Urinalysis unremarkable. Previously he was on torsemide 100 milligram twice a day however it was discontinued after hospital admission in March when creatinine peaked to 1.6. 2D echo showed EF 60-65%, grade 2 diastolic dysfunction and no significant valvular abnormality. No history of significant coronary artery disease. Has extensive history of smoking for 47 years quit smoking in 2014, has advanced COPD as well as sleep apnea. Recommendations --continue on Lasix 40 mg IV twice a day, aim for net negative ~1 L per day. Hopefully will be able to switch to PO by tomorrow --check renal function daily and magnesium and phosphate every other day --avoid hypotension, avoid all nephrotoxic medications Will follow
[2017-06-17] MEDS: TAMSULOSIN HCL 0.4 MG CAP PO SCH (20:55)
--- NOTE | 2017-06-17 22:03 | Progress Note ---
Medicine Progress Note Date & Time of Visit: Jun 17, 2017 at 15:40 . Subjective Episode of dyspnea this morning, apparently not wearing O2 at the time. Occasional nonproductive cough. No chest pain. Persistent dependent edema. No nausea, vomiting, diarrhea. Voiding without difficulty. . Objective Last 8 Hrs Date Time Temp Pulse Resp B/P (MAP) Pulse Ox O2 Delivery O2 Flow Rate FiO2 06/17/17 20:02 36.6 72 20 127/77 (94) 94 Room Air 06/17/17 19:12 85 16 94 Room Air 06/17/17 16:00 93 Room Air 2.0 06/17/17 15:31 37.1 81 18 114/64 (81) 91 Room Air 06/17/17 15:12 75 16 92 Room Air Physical Exam: General- no distress Neck- + JVD Lungs- diffuse mild wheezing Heart- RRR, no murmur or gallop appreciated Abdomen- obese, soft, nontender Extremities- 3+ pretibial and pedal edema; no cyanosis or clubbing Neuro- alert Skin- warm & dry . Laboratory Results: Last 24 Hours Test 06/17/17 06:52 Sodium Level 138 mmol/L Potassium Level 3.5 mmol/L Chloride Level 97 mmol/L Carbon Dioxide Level 34 mmol/L Anion Gap 7.0 mmol/L Blood Urea Nitrogen 32 mg/dl Creatinine 1.24 mg/dl Est Creatinine Clear Calc Drug Dose 77.5 ml/min Estimated GFR () 70.3 Estimated GFR (Non- 60.6 BUN/Creatinine Ratio 25.8 Random Glucose 99 mg/dl Calcium Level 8.8 mg/dl Assessment & Plan CHF Presented with dyspnea, worsening edema. Echocardiogram showed mild concentric left ventricular hypertrophy. Probable acute on chronic left ventricular diastolic heart failure with possible right-sided failure as well. Continue IV diuretics. CORONARY ARTERY DISEASE History of myocardial infarction, details not yet available. No anginal symptoms. Continue aspirin, metoprolol, lipid management. CEREBROVASCULAR DISEASE History of stroke or TIA. Continue aspirin and lipid management. PT, OT evals. EXACERBATION COPD History of COPD. PFTs performed at [place] on 12/25/16 demonstrated FEV1 1.09 (40% predicted ). No infiltrates on chest x-ray. Cough and wheezing could be secondary to bronchitis or CHF. Received methylprednisolone, albuterol nebs, doxycycline. Transitioned to oral steroid therapy with prednisone. Pulmonary Medicine consulted. SLEEP APNEA / OBESITY HYPOVENTILATION SYNDROME Sleep study performed at [place] in December 2016 and demonstrated apnea/ hypopnea index of 38. Daughter patient indicates intolerance of CPAP. Nocturnal pulse oximetry ordered, could not be performed last night due to technical difficulties. CKD III History of worsening renal function associated with diuretics. Nephrology consulted. Creatinine day of admission was 0.9. Creatinine today = 1.24. Follow. BPH Continue tamsulosin. CHOLELITHIASIS Noted on ultrasound of abdomen. Asymptomatic. HEPATIC LESION 2.9 cm lesion noted left hepatic lobe, technically indeterminate by US. Discussed with patient. He indicates that he has been told the past that he had a spot on his liver (~ [address] [place], [place]) Old records requested for baseline info. VTE PROPHYLAXIS SQ enoxaparin. INCOMPLETE DATA Old records received from [facility] in [place], [place]. Initial records will be requested from [facility] in [place], [place]. DISPOSITION To be determined. May need skilled care or inpatient rehabilitation. PT / OT evals ordered. Internal Medicine follow-up with Dr. Samuel Reynolds (has appointment for to get established). Pulmonary Medicine follow-up with [facility]. Nephrology follow-up with Dr. Stein. Transition to Cardiology follow-up with [facility] as outpatient to optimize continuity of care. . Consultants: Cardiology Pulmonary Medicine Nephrology . Current Inpatient Medications: Current Inpatient Medications Medications (Trade) Dose Ordered Sig/Jelly Route Start Time Stop Time Status Last Admin Dose Admin Albuterol/ Ipratropium (Duoneb) 3 ml QIDR INH 06/14/17 08:00 07/14/17 07:59 06/17/17 19:12 3 ML Furosemide 40 mg/ Syringe 4 ml @ 4 mls/min BID17 IV 06/14/17 09:00 07/14/17 08:59 06/17/17 16:08 4 MLS/MIN Aspirin (Ecotrin Tab) 81 mg DAILY PO 06/14/17 09:00 07/14/17 08:59 06/17/17 08:29 81 MG Metoprolol Succinate (Toprol Xl Tab) 25 mg DAILY PO 06/14/17 09:00 07/14/17 08:59 06/17/17 08:28 25 MG Tamsulosin HCl (Flomax Cap) 0.4 mg QPM PO 06/14/17 21:00 07/14/17 20:59 06/17/17 20:55 0.4 MG Pantoprazole Sodium (Protonix Tab) 40 mg QAM PO 06/14/17 09:00 07/14/17 08:59 06/17/17 08:29 40 MG Miscellaneous Information (Order Awaiting Action) 1 ea QS N/A 06/14/17 08:00 07/14/17 07:59 Enoxaparin Sodium (Lovenox Inj) 40 mg Q24H SC 06/14/17 09:00 07/14/17 08:59 06/17/17 08:30 40 MG Acetaminophen (Tylenol Tab) 650 mg Q4H PRN PO 06/14/17 06:00 07/14/17 05:59 Al Hydrox/Mg Hydrox/Simethicone (Maalox Max Susp) 15 ml Q4H PRN PO 06/14/17 06:00 07/14/17 05:59 Doxycycline Hyclate (Vibramycin Cap) 100 mg BID PO 06/14/17 09:00 06/21/17 08:59 06/17/17 20:55 100 MG Potassium Chloride (Klor-Con Tab) 20 meq BID PO 06/14/17 21:00 07/14/17 20:59 06/17/17 20:55 20 MEQ Lisinopril (Zestril Tab) 5 mg QAM PO 06/16/17 09:00 07/16/17 08:59 06/17/17 08:29 5 MG Prednisone (PredniSONE TAB) 40 mg DAILY PO 06/16/17 09:00 07/16/17 08:59 06/17/17 08:28 40 MG
[2017-06-18] VITALS (11 sets, daily range): BP systolic 91–121; BP diastolic 50–77; PULSE 68–84; TEMP 36.4–37.1; O2SAT 91–97
[2017-06-18 06:32] LABS: BUN/CREATININE RATIO 23.9 (10-20); CALCIUM 8.5 mg/dl (8.5-10.1); CREATININE 1.13 mg/dl (0.60-1.40); POTASSIUM 3.7 mmol/L (3.5-5.1)
[2017-06-18] MEDS: ALBUT/IPRATROP 3MG/0.5MG NEB 3 ML VIAL INH SCH ×4 (07:19→20:05)
[2017-06-18] MEDS: METOPROLOL SUCC 25MG EXT REL TAB PO SCH (07:52)
[2017-06-18] MEDS: PANTOprazole SOD 40 MG TAB PO SCH (07:52)
[2017-06-18] MEDS: DOXYCYCLINE HYCLATE 100 MG CAP PO SCH ×2 (07:52→20:49)
[2017-06-18] MEDS: LISINOPRIL 5 MG TAB PO SCH (07:52)
[2017-06-18] MEDS: ASPIRIN 81 MG ECTAB PO SCH (07:52)
[2017-06-18] MEDS: POTASSIUM CHLORIDE 20 MEQ TABCR PO SCH ×2 (07:53→20:49)
[2017-06-18] MEDS: FUROSEMIDE INJ 40 MG in SYRINGE 0 ML IV SCH (07:53)
[2017-06-18] MEDS: ENOXAPARIN 40 MG/0.4 ML SYR SC SCH (07:53)
--- NOTE | 2017-06-18 10:07 | Nephrology Progress Note ---
Nephrology Progress Note Date of Service Jun 18, 2017. Chief Complaint [place] Subjective No acute events overnight. Kamari feels well this morning. He denies significant dyspnea. He denies chest pain or palpitations. Lower extremity edema persists but not significant. Kamari states that this edema is new or at least worsening over the past several weeks. He denies significant orthopnea. He states that he does still feel a little weak on his feet. He denies lightheadedness or dizziness. Review of Systems A complete review of systems was performed. Pertinent positives are noted above. All other systems are negative. Vital Signs Last 8 Hrs Date Time Temp Pulse Resp B/P (MAP) Pulse Ox O2 Delivery O2 Flow Rate FiO2 06/18/17 08:00 Room Air 06/18/17 07:53 36.4 72 20 121/70 (87) 92 06/18/17 07:19 79 16 92 Room Air 06/18/17 04:15 Room Air 06/18/17 04:00 36.7 83 20 101/64 (76) 97 Room Air Last Recorded Weight Weight (Kilograms): 143.400 Physical Exam General Appearance: no apparent distress, + obese Head: normocephalic, atraumatic Eyes: normal inspection, sclerae normal ENT: normal ENT inspection, pharynx normal Neck: supple, no JVD Respiratory/Chest: lungs clear, no respiratory distress, no accessory muscle use Cardiovascular: regular rate, rhythm, no gallop, no murmur Back: no CVA tenderness Abdomen/GI: non tender, soft Extremities/Musculoskelatal: normal inspection, + pedal edema Neurologic/Psych: alert, normal mood/affect Family History No pertinent family history Social History Marital Status: Laboratory Results Past 24 Hours 06/18/17 05:43 Test 06/18/17 05:43 Anion Gap 6.0 mmol/L (3-11) Est Creatinine Clear Calc Drug Dose 85.1 ml/min Estimated GFR () 78.6 Estimated GFR (Non- 67.8 BUN/Creatinine Ratio 23.9 (10-20) Calcium Level 8.5 mg/dl (8.5-10.1) Allergies Coded Allergies: No Known Allergies (Unverified , 06/14/17) Medications Current Inpatient Medications Medications (Trade) Dose Ordered Sig/Jelly Route Start Time Stop Time Status Last Admin Dose Admin Albuterol/ Ipratropium (Duoneb) 3 ml QIDR INH 06/14/17 08:00 07/14/17 07:59 06/18/17 07:19 3 ML Aspirin (Ecotrin Tab) 81 mg DAILY PO 06/14/17 09:00 07/14/17 08:59 06/18/17 07:52 81 MG Metoprolol Succinate (Toprol Xl Tab) 25 mg DAILY PO 06/14/17 09:00 07/14/17 08:59 06/18/17 07:52 25 MG Tamsulosin HCl (Flomax Cap) 0.4 mg QPM PO 06/14/17 21:00 07/14/17 20:59 06/17/17 20:55 0.4 MG Pantoprazole Sodium (Protonix Tab) 40 mg QAM PO 06/14/17 09:00 07/14/17 08:59 06/18/17 07:52 40 MG Miscellaneous Information (Order Awaiting Action) 1 ea QS N/A 06/14/17 08:00 07/14/17 07:59 Enoxaparin Sodium (Lovenox Inj) 40 mg Q24H SC 06/14/17 09:00 07/14/17 08:59 06/18/17 07:53 40 MG Acetaminophen (Tylenol Tab) 650 mg Q4H PRN PO 06/14/17 06:00 07/14/17 05:59 Al Hydrox/Mg Hydrox/Simethicone (Maalox Max Susp) 15 ml Q4H PRN PO 06/14/17 06:00 07/14/17 05:59 Doxycycline Hyclate (Vibramycin Cap) 100 mg BID PO 06/14/17 09:00 06/21/17 08:59 06/18/17 07:52 100 MG Potassium Chloride (Klor-Con Tab) 20 meq BID PO 06/14/17 21:00 07/14/17 20:59 06/18/17 07:53 20 MEQ Lisinopril (Zestril Tab) 5 mg QAM PO 06/16/17 09:00 07/16/17 08:59 06/18/17 07:52 5 MG Prednisone (PredniSONE TAB) 40 mg DAILY PO 06/16/17 09:00 07/16/17 08:59 06/18/17 07:52 40 MG Furosemide (Lasix Tab) 40 mg BID17 PO 06/18/17 17:00 07/18/17 16:59 Impression (1) AMERICA (acute kidney injury) (2) CKD (chronic kidney disease) stage 3, GFR 30-59 ml/min (3) CHF (congestive heart failure) (4) COPD (chronic obstructive pulmonary disease) Mr. Kamari Montgomery is a 66-year-old male with morbid obesity, hypertension, COPD, CHF with diastolic dysfunction. He was admitted with acute on chronic diastolic CHF as well as COPD exacerbation. He is clinically improving with supportive care. Activity tolerance remains limited. He is diuresing well an approaching an appropriate volume status. Diuretics will be switched to PO today. Records indicated chronic kidney disease III (baseline creatinine ~1.0 mg/dL) most likely secondary to type 2 cardiorenal syndrome with significant diastolic dysfunction requiring high dose of diuretics. Urinalysis bland and microscopy acellular. Previously he was on torsemide 100 milligram twice a day. TTE showed EF 60-65%, grade 2 diastolic dysfunction and no significant valvular abnormality. Recommendations AMERICA: -- Continue to maintain slightly negative fluid balance -- Furosemide switched to PO -- Document AM weight and I/O's -- Monitor renal profile daily while inpatient -- Medications appropriate for renal function -- Outpatient follow up with Dr. Stein will be scheduled for within 2 weeks of discharge CKD: -- Outpatient follow up to be arranged -- Low sodium diet -- Aspirin 81 mg daily
--- NOTE | 2017-06-18 10:21 | Clinical Documentation Query ---
CLINICAL DOCUMENTATION QUERY Dr. WAY, In your clinical opinion is this patient being managed for: (x ) Hypertension ( ) Not Agree ( ) Other explanation of clinical findings (Please Explain) ( ) Unable to determine (Please Define) ( ) Need to Discuss The medical record reflects the following clinical findings, treatment, and risk factors. Clinical Indicators: 66 yo male presenting with worsening dyspnea. Documentation in nephrology note indicates pt with hx of hypertension. This is also noted in the scanned documents from [facility]. This diagnosis is not noted on the attending documentation. Treatment: Metoprolol Risk Factors: age, CKD stage III, COPD, chronic diastolic CHF, chronic respiratory failure, [place], CAD Please clarify and document your clinical opinion in the progress notes and discharge summary. Terms such as "probable", "suspected", "likely", "questionable", "possible", or "still to be ruled out" are acceptable. IF IN AGREEMENT, YOU MUST DOCUMENT ABOVE DIAGNOSTIC STATEMENT IN DAILY PROGRESS NOTES AND DISCHARGE SUMMARY. This document is not part of the patient's record. Thank You, Lakesha Cuellar, RN [phone]
--- NOTE | 2017-06-18 15:46 | PULMONARY PROGRESS NOTE ---
DATE: 06/18/2017 TIME: 3:05 p.m. SUBJECTIVE: The patient states he is a little better, but not a whole lot better than when he first came in. He feels he is still short of breath. Obtaining his history was somewhat difficult. The patient is slow with speech. I believe he stutters. I cannot exclude some degree of expressive aphasia. He still feels winded with any exertion. Earlier today, he had an episode where his heart rates went down into the 30s. This was in late morning and he was asleep at that time. I asked his nurse if she had observed any apneas and she said she had not at that point in time. He denies having any chest pain. He still is coughing. The cough is worsened with taking deep breaths. Review of the patient's records from [place] indicates that he is a stage III COPD patient based upon recent pulmonary function tests. The patient and I spoke about his sleep apnea. It was unclear if he had 30 apneas per hour or if he had a total of 30 apneas for the night. I tend to suspect that it probably was 30 apneas per hour. I tried to ask him what kind of troubles he had that he could not tolerate the CPAP. Apparently, he only used it for 1 night. He implied that he could not get comfortable with the mask. He admits that he does open his mouth and keep it open fairly often. This would suggest that he likely needs a full facemask. I did ask him if he would be willing to try a CPAP or BiPAP while he was here even for an hour to see how it goes. He indicated he would be willing to do that. Ultimately, I was able to review some sleep records from [facility] in [place], [place]. They did indicate his apnea-hypopnea index was 38. They treated him with nasal CPAP and reportedly he had lack of sleep time. They were not able to make any determination. They did report the patient had difficulty in accepting the mask and refused it for multiple reasons. I was able to find pulmonary functions from 12/25/2016. The patient's FEV1 was only 40% of predicted with an actual value of 1.09 liters. The vital capacity was 2.21 liters. The FEV1/FVC ratio would be slightly less than 50%. There was no change following bronchodilators. OBJECTIVE: The patient appeared comfortable. He did have coughing when taking deep breaths. Temperature was 37.1. He has a large neck. No lymph nodes were palpable. Heart rate was 82 per minute. Blood pressure was 109/56. Lung manrique revealed wheezes on expiration. The breath sounds were diminished. He coughs if he would take a deep breath at all. Saturation was 93% on room air. Extremities still show +2 edema of both lower extremities. LABORATORY DATA: The most recent white count from June 15 was 14.48. Hemoglobin was 14.7. Platelets are 310,000. Electrolytes show sodium 135, potassium 3.7, chloride 96, bicarbonate 33. IMPRESSION: 1. Chronic obstructive pulmonary disease with exacerbation. 2. Severe chronic obstructive pulmonary disease as per pulmonary function. 3. Obstructive sleep apnea. 4. Obesity hypoventilation syndrome. COMMENTS AND RECOMMENDATIONS: I have spoken with the patient at length. I have encouraged him to give a trial of BiPAP at least during the day and see how he would do with that. I told him this could be a 1-hour trial and then we can talk about whether he feels he could wear it at night. I am doubtful that he will accept the BiPAP therapy, but we will try it for an hour hopefully and see how it goes. I feel the treatment of the underlying sleep apnea is very important for this particular patient. At that time this morning when he had a slow heart rate in the 30s, he was asleep. The possibility of sleep related bradycardia does exist. I agree with his other treatments.
[2017-06-18] MEDS: FUROSEMIDE 40 MG TAB PO SCH (17:29)
--- NOTE | 2017-06-18 17:29 | Cardiology Follow-Up ---
Subjective General Date of Service: Jun 18, 2017. Chief Complaint: follow up volume overload Pt evaluation today including: conversation w/ patient History of Present Illness The patient is a 66 year old male seen in follow up. Still has cough with deep inspiration. LE edema better. Telemetry revealed transient SB to the 20 bpm range during a nap early this am. Allergies Coded Allergies: No Known Allergies (Unverified , 06/14/17) Social History Smoking Status: Former Smoker Hx Alcohol Use - Type And Amou: No Problem List Medical Problems: (1) CHF (congestive heart failure) Status: Acute (2) CHF (congestive heart failure) Status: Acute (3) COPD (chronic obstructive pulmonary disease) Status: Acute (4) COPD (chronic obstructive pulmonary disease) Status: Acute (5) Dyspnea Status: Acute Physical Exam Vital Signs Last Vital Signs Documentation Date Time Temp Pulse Resp B/P (MAP) Pulse Ox O2 Delivery O2 Flow Rate FiO2 06/18/17 16:11 Room Air 06/18/17 16:10 36.4 79 19 95/56 (69) 91 06/18/17 00:00 2.0 Physical Exam Constitutional: Level of Distress: NAD Neck: supple Lungs: Auscultation: pertinent finding (mildly decreased breath sounds to bases, wheezing noted acetate deep inspirations) Abdomen: Inspection & Palpation: pertinent finding (Mildly distended, no tenderness,) Extremities: pertinent finding (1+ bilateral lower extremity edema) Assessment and Plan Assessment and Plan Impression: 66-year-old male 1. acute on chronic diastolic heart failure, in setting stage III chronic any disease -transient bradycardia, perhaps due to JALYN, hyoxia 2. Obesity hypoventilation syndrome. 3. COPD Plan: transitioned to oral diuretic therapy. Pulm input noted and appreciated. Agree with trail of Bipap, apparently had not tolerated past tries. Laboratory Results Last 24 Hours Test 06/18/17 05:43 Sodium Level 135 mmol/L Potassium Level 3.7 mmol/L Chloride Level 96 mmol/L Carbon Dioxide Level 33 mmol/L Anion Gap 6.0 mmol/L Blood Urea Nitrogen 27 mg/dl Creatinine 1.13 mg/dl Est Creatinine Clear Calc Drug Dose 85.1 ml/min Estimated GFR () 78.6 Estimated GFR (Non- 67.8 BUN/Creatinine Ratio 23.9 Random Glucose 101 mg/dl Calcium Level 8.5 mg/dl
[2017-06-18] MEDS: TAMSULOSIN HCL 0.4 MG CAP PO SCH (20:49)
--- NOTE | 2017-06-18 23:58 | Progress Note ---
Medicine Progress Note Date & Time of Visit: Jun 18, 2017 . Subjective Episode of sinus bradycardia in 30's this morning while sleeping. Occasional cough. Dyspnea on exertion. No chest pain. Edema improved. Voiding without difficulty. . Objective Last 8 Hrs Date Time Temp Pulse Resp B/P (MAP) Pulse Ox O2 Delivery O2 Flow Rate FiO2 06/18/17 20:20 36.8 68 24 91/50 (64) 94 Room Air 06/18/17 20:07 68 16 93 Room Air 06/18/17 20:01 Room Air 06/18/17 16:11 Room Air 06/18/17 16:10 36.4 79 19 95/56 (69) 91 Room Air 06/18/17 16:05 75 97 Physical Exam: General- no distress Neck- + JVD Lungs- diffuse mild wheezing Heart- RRR, no murmur or gallop appreciated Abdomen- obese, soft, nontender Extremities- 2+ pretibial and pedal edema; no cyanosis or clubbing Neuro- alert Skin- warm & dry . Laboratory Results: Last 24 Hours Test 06/18/17 05:43 Sodium Level 135 mmol/L Potassium Level 3.7 mmol/L Chloride Level 96 mmol/L Carbon Dioxide Level 33 mmol/L Anion Gap 6.0 mmol/L Blood Urea Nitrogen 27 mg/dl Creatinine 1.13 mg/dl Est Creatinine Clear Calc Drug Dose 85.1 ml/min Estimated GFR () 78.6 Estimated GFR (Non- 67.8 BUN/Creatinine Ratio 23.9 Random Glucose 101 mg/dl Calcium Level 8.5 mg/dl Assessment & Plan CHF Presented with dyspnea, worsening edema. Echocardiogram showed mild concentric left ventricular hypertrophy. Probable acute on chronic left ventricular diastolic heart failure with possible right-sided failure as well. Received IV diuretics with improvement. Transition to oral diuretic therapy. CORONARY ARTERY DISEASE History of myocardial infarction. No anginal symptoms. Continue aspirin, metoprolol, lipid management. BRADYCARDIA Sinus bradycardia in 30's while sleeping. Optimize pulmonary status. Decrease metoprolol succinate to 12.5 mg daily. CEREBROVASCULAR DISEASE History of stroke or TIA. Continue aspirin and lipid management. PT, OT evals. EXACERBATION COPD History of COPD. PFTs performed at [place] on 12/25/16 demonstrated FEV1 1.09 (40% predicted ). No infiltrates on chest x-ray. Cough and wheezing could be secondary to bronchitis or CHF. Received methylprednisolone, albuterol nebs, doxycycline. Transitioned to oral steroid therapy with prednisone. Pulmonary Medicine consulted. SLEEP APNEA / OBESITY HYPOVENTILATION SYNDROME Sleep study performed at [place] in December 2016 and demonstrated apnea/ hypopnea index of 38. Daughter patient indicates intolerance of CPAP. Nocturnal pulse oximetry ordered, could not be performed last night due to technical difficulties. CKD III History of worsening renal function associated with diuretics. Nephrology consulted. Creatinine day of admission was 0.9. Creatinine today = 1.13. Follow. BPH Continue tamsulosin. CHOLELITHIASIS Noted on ultrasound of abdomen. Asymptomatic. HEPATIC LESION 2.9 cm lesion noted left hepatic lobe, technically indeterminate by US. Discussed with patient. He indicates that he has been told the past that he had a spot on his liver (~ [address] [place]) Old records requested for baseline info. VTE PROPHYLAXIS SQ enoxaparin. INCOMPLETE DATA Old records received from [facility] in [place], [place]. Initial records will be requested from [facility] in [place], [place]. DISPOSITION To be determined. May need skilled care or inpatient rehabilitation. PT / OT evals ordered. Internal Medicine follow-up with Dr. Samuel Reynolds (has appointment for to get established). Pulmonary Medicine follow-up with [facility]. Nephrology follow-up with Dr. Stein. Transition to Cardiology follow-up with [facility] as outpatient to optimize continuity of care. . Consultants: Cardiology Pulmonary Medicine Nephrology . Current Inpatient Medications: Current Inpatient Medications Medications (Trade) Dose Ordered Sig/Jelly Route Start Time Stop Time Status Last Admin Dose Admin Albuterol/ Ipratropium (Duoneb) 3 ml QIDR INH 06/14/17 08:00 07/14/17 07:59 06/18/17 20:05 3 ML Aspirin (Ecotrin Tab) 81 mg DAILY PO 06/14/17 09:00 07/14/17 08:59 06/18/17 07:52 81 MG Metoprolol Succinate (Toprol Xl Tab) 25 mg DAILY PO 06/14/17 09:00 07/14/17 08:59 06/18/17 07:52 25 MG Tamsulosin HCl (Flomax Cap) 0.4 mg QPM PO 06/14/17 21:00 07/14/17 20:59 06/18/17 20:49 0.4 MG Pantoprazole Sodium (Protonix Tab) 40 mg QAM PO 06/14/17 09:00 07/14/17 08:59 06/18/17 07:52 40 MG Miscellaneous Information (Order Awaiting Action) 1 ea QS N/A 06/14/17 08:00 07/14/17 07:59 Enoxaparin Sodium (Lovenox Inj) 40 mg Q24H SC 06/14/17 09:00 07/14/17 08:59 06/18/17 07:53 40 MG Acetaminophen (Tylenol Tab) 650 mg Q4H PRN PO 06/14/17 06:00 07/14/17 05:59 Al Hydrox/Mg Hydrox/Simethicone (Maalox Max Susp) 15 ml Q4H PRN PO 06/14/17 06:00 07/14/17 05:59 Doxycycline Hyclate (Vibramycin Cap) 100 mg BID PO 06/14/17 09:00 06/21/17 08:59 06/18/17 20:49 100 MG Potassium Chloride (Klor-Con Tab) 20 meq BID PO 06/14/17 21:00 07/14/17 20:59 06/18/17 20:49 20 MEQ Lisinopril (Zestril Tab) 5 mg QAM PO 06/16/17 09:00 07/16/17 08:59 06/18/17 07:52 5 MG Prednisone (PredniSONE TAB) 40 mg DAILY PO 06/16/17 09:00 07/16/17 08:59 06/18/17 07:52 40 MG Furosemide (Lasix Tab) 40 mg BID17 PO 06/18/17 17:00 07/18/17 16:59 06/18/17 17:29 40 MG
[2017-06-19] VITALS (7 sets, daily range): BP systolic 96–117; BP diastolic 55–70; PULSE 74–87; TEMP 36.6–36.9; O2SAT 91–94
[2017-06-19 06:50] LABS: BUN/CREATININE RATIO 21.4 (10-20); CALCIUM 8.3 mg/dl (8.5-10.1); CREATININE 1.25 mg/dl (0.60-1.40); POTASSIUM 3.9 mmol/L (3.5-5.1)
[2017-06-19] MEDS: ALBUT/IPRATROP 3MG/0.5MG NEB 3 ML VIAL INH SCH ×3 (06:59→15:21)
[2017-06-19] MEDS: PANTOprazole SOD 40 MG TAB PO SCH (08:50)
[2017-06-19] MEDS: DOXYCYCLINE HYCLATE 100 MG CAP PO SCH (08:50)
[2017-06-19] MEDS: FUROSEMIDE 40 MG TAB PO SCH (08:50)
[2017-06-19] MEDS: ASPIRIN 81 MG ECTAB PO SCH (08:50)
[2017-06-19] MEDS: POTASSIUM CHLORIDE 20 MEQ TABCR PO SCH (08:51)
[2017-06-19] MEDS: LISINOPRIL 5 MG TAB PO SCH (08:51)
[2017-06-19] MEDS: ENOXAPARIN 40 MG/0.4 ML SYR SC SCH (08:51)
[2017-06-19] MEDS ORDERED: METOPROLOL SUCC 25MG EXT REL TAB PO SCH (09:00)
--- NOTE | 2017-06-19 09:05 | Nephrology Progress Note ---
Nephrology Progress Note Date of Service Jun 19, 2017. Chief Complaint [place] Subjective No acute events overnight. Kamari is resting comfortably in bed. He denies dyspnea at rest. He denies significant orthopnea. Activity tolerance remains reduced. He reports some weakness and persistent [place]. Overall, he does feel like he is improving. Appetite is good. He is voiding urine without difficulty. He denies lightheadedness or dizziness. Review of Systems A complete review of systems was performed. Pertinent positives are noted above. All other systems are negative. Vital Signs Last 8 Hrs Date Time Temp Pulse Resp B/P (MAP) Pulse Ox O2 Delivery O2 Flow Rate FiO2 06/19/17 07:31 36.6 74 18 117/70 (86) 94 Room Air 06/19/17 06:59 78 16 93 Room Air 06/19/17 04:00 Room Air 06/19/17 03:55 36.6 80 18 96/56 (69) 91 Room Air Last Recorded Weight Weight (Kilograms): 143.200 Physical Exam General Appearance: no apparent distress, + obese Head: normocephalic, atraumatic Eyes: normal inspection, sclerae normal ENT: normal ENT inspection, pharynx normal Neck: supple, no JVD Respiratory/Chest: lungs clear, no respiratory distress, no accessory muscle use Cardiovascular: regular rate, rhythm, no gallop Abdomen/GI: non tender, soft Extremities/Musculoskelatal: normal inspection, + pedal edema Neurologic/Psych: alert, normal mood/affect Family History No pertinent family history Social History Marital Status: Laboratory Results Past 24 Hours 06/19/17 05:46 Test 06/19/17 05:46 Anion Gap 4.0 mmol/L (3-11) Est Creatinine Clear Calc Drug Dose 80.9 ml/min Estimated GFR () 69.6 Estimated GFR (Non- 60.0 BUN/Creatinine Ratio 21.4 (10-20) Calcium Level 8.3 mg/dl (8.5-10.1) Allergies Coded Allergies: No Known Allergies (Unverified , 06/14/17) Medications Current Inpatient Medications Medications (Trade) Dose Ordered Sig/Jelly Route Start Time Stop Time Status Last Admin Dose Admin Albuterol/ Ipratropium (Duoneb) 3 ml QIDR INH 06/14/17 08:00 07/14/17 07:59 06/19/17 06:59 3 ML Aspirin (Ecotrin Tab) 81 mg DAILY PO 06/14/17 09:00 07/14/17 08:59 06/19/17 08:50 81 MG Tamsulosin HCl (Flomax Cap) 0.4 mg QPM PO 06/14/17 21:00 07/14/17 20:59 06/18/17 20:49 0.4 MG Pantoprazole Sodium (Protonix Tab) 40 mg QAM PO 06/14/17 09:00 07/14/17 08:59 06/19/17 08:50 40 MG Miscellaneous Information (Order Awaiting Action) 1 ea QS N/A 06/14/17 08:00 07/14/17 07:59 Enoxaparin Sodium (Lovenox Inj) 40 mg Q24H SC 06/14/17 09:00 07/14/17 08:59 06/19/17 08:51 40 MG Acetaminophen (Tylenol Tab) 650 mg Q4H PRN PO 06/14/17 06:00 07/14/17 05:59 Al Hydrox/Mg Hydrox/Simethicone (Maalox Max Susp) 15 ml Q4H PRN PO 06/14/17 06:00 07/14/17 05:59 Doxycycline Hyclate (Vibramycin Cap) 100 mg BID PO 06/14/17 09:00 06/21/17 08:59 06/19/17 08:50 100 MG Potassium Chloride (Klor-Con Tab) 20 meq BID PO 06/14/17 21:00 07/14/17 20:59 06/19/17 08:51 20 MEQ Lisinopril (Zestril Tab) 5 mg QAM PO 06/16/17 09:00 07/16/17 08:59 06/19/17 08:51 5 MG Prednisone (PredniSONE TAB) 40 mg DAILY PO 06/16/17 09:00 07/16/17 08:59 06/19/17 08:50 40 MG Furosemide (Lasix Tab) 40 mg BID17 PO 06/18/17 17:00 07/18/17 16:59 06/19/17 08:50 40 MG Metoprolol Succinate (Toprol Xl Tab) 12.5 mg QAM PO 06/19/17 09:00 07/19/17 08:59 06/19/17 08:50 12.5 MG Impression (1) AMERICA (acute kidney injury) (2) CKD (chronic kidney disease) stage 3, GFR 30-59 ml/min (3) CHF (congestive heart failure) (4) COPD (chronic obstructive pulmonary disease) Mr. Kamari Montgomery is a 66-year-old male with morbid obesity, hypertension, COPD, CHF with diastolic dysfunction. He was admitted with acute on chronic diastolic CHF as well as COPD exacerbation. He is diuresing well an approaching an appropriate volume status. Diuretics switched to PO yesterday. Negative ~1 L in past 24 hours. I will decrease furosemide to 20 mg twice daily today. Records indicated chronic kidney disease III (baseline creatinine ~1.0 mg/dL) most likely secondary to type 2 cardiorenal syndrome with significant diastolic dysfunction requiring high dose of diuretics. Urinalysis bland and microscopy acellular. Previously he was on torsemide 100 milligram twice a day. TTE showed EF 60-65%, grade 2 diastolic dysfunction and no significant valvular abnormality. Recommendations AMERICA: -- Continue to maintain slightly negative fluid balance -- Furosemide switched to 20 mg BID today -- Document AM weight and I/O's -- Monitor renal profile daily while inpatient -- Medications appropriate for renal function -- Outpatient follow up with Dr. Stein will be scheduled for within 2 weeks of discharge CKD: -- Outpatient follow up to be arranged -- Low sodium diet -- Aspirin 81 mg daily
--- NOTE | 2017-06-19 14:12 | Progress Note ---
Medicine Progress Note Date & Time of Visit: Jun 19, 2017 at 13:20 . Subjective Feels better. Dyspnea improved. Occasional cough productive of white sputum. No chest pain. No nausea, vomiting, diarrhea. Ambulating without difficulty. . Objective Last 8 Hrs Date Time Temp Pulse Resp B/P (MAP) Pulse Ox O2 Delivery O2 Flow Rate FiO2 06/19/17 12:19 Room Air 06/19/17 11:37 87 16 94 Room Air 06/19/17 11:32 36.9 77 18 107/67 (80) 93 06/19/17 08:45 Room Air 06/19/17 07:31 36.6 74 18 117/70 (86) 94 Room Air 06/19/17 06:59 78 16 93 Room Air Physical Exam: General- no distress Neck- + JVD Lungs- diffuse mild wheezing Heart- RRR, no murmur or gallop appreciated Abdomen- obese, soft, nontender Extremities- 2+ pretibial and pedal edema; no cyanosis or clubbing Neuro- alert Skin- warm & dry . Laboratory Results: Last 24 Hours Test 06/19/17 05:46 Sodium Level 135 mmol/L Potassium Level 3.9 mmol/L Chloride Level 97 mmol/L Carbon Dioxide Level 34 mmol/L Anion Gap 4.0 mmol/L Blood Urea Nitrogen 27 mg/dl Creatinine 1.25 mg/dl Est Creatinine Clear Calc Drug Dose 80.9 ml/min Estimated GFR () 69.6 Estimated GFR (Non- 60.0 BUN/Creatinine Ratio 21.4 Random Glucose 93 mg/dl Calcium Level 8.3 mg/dl Assessment & Plan CHF Presented with dyspnea, worsening edema. Echocardiogram showed mild concentric left ventricular hypertrophy. Probable acute on chronic left ventricular diastolic heart failure with possible right-sided failure as well. Received IV diuretics with improvement. Transitioned to oral diuretic therapy with furosemide 20 mg BID. Follow exam, weights, labs. Titrate diuretics as necessary. CORONARY ARTERY DISEASE History of myocardial infarction. No anginal symptoms. Continue aspirin, metoprolol, lipid management. BRADYCARDIA Sinus bradycardia in 30's while sleeping without O2. Optimize pulmonary status. Decreased metoprolol succinate to 12.5 mg daily. EXACERBATION COPD History of COPD. PFTs performed at [place] on 12/25/16 demonstrated FEV1 1.09 (40% predicted ). No infiltrates on chest x-ray. Cough and wheezing could be secondary to bronchitis or CHF. Pulmonary Medicine consulted. Received methylprednisolone, albuterol nebs, doxycycline. Transitioned to oral steroid therapy with prednisone. Discharge on Symbicort, Duonebs, prednisone taper. SLEEP APNEA / OBESITY HYPOVENTILATION SYNDROME / NOCTURNAL HYPOXIA Sleep study performed at [place] in December 2016 and demonstrated apnea/ hypopnea index of 38. Intolerance of CPAP in past. Nocturnal pulse oximetry demonstrated O2 sats as low as 78%. BiPAP attempted, but patient did not tolerate it. Continue O2 2 LPM at night and whenever sleeping during the day. CEREBROVASCULAR DISEASE History of stroke or TIA. Continue aspirin and lipid management. CKD III History of worsening renal function associated with diuretics. Nephrology consulted. Creatinine day of admission was 0.9. Creatinine today = 1.25. Follow. BPH Continue tamsulosin. CHOLELITHIASIS Noted on ultrasound of abdomen. Asymptomatic. HEPATIC LESION 2.9 cm lesion noted left hepatic lobe, technically indeterminate by US. Discussed with patient. He indicates that he has been told the past that he had a spot on his liver (~ 1999 [place], [place]) Old records requested for baseline info, but reports received did not include imaging from around 1999. Old reports / images should be obtained as an outpatient with follow-up as clinically indicated. VTE PROPHYLAXIS SQ enoxaparin. INCOMPLETE DATA Old records received from [facility] in [place], [place]. Records also requested from [facility] in [place], [place]. DISPOSITION Arrangements being made for transfer to [facility] for inpatient rehab. Internal Medicine follow-up with Dr. Samuel Reynolds (has appointment for to get established). [facility] Nephrology follow-up with Dr. Stein. Transition to Cardiology follow-up with [facility] as outpatient to optimize continuity of care. . Consultants: Cardiology Pulmonary Medicine Nephrology . Current Inpatient Medications: Current Inpatient Medications Medications (Trade) Dose Ordered Sig/Jelly Route Start Time Stop Time Status Last Admin Dose Admin Albuterol/ Ipratropium (Duoneb) 3 ml QIDR INH 06/14/17 08:00 07/14/17 07:59 06/19/17 11:37 3 ML Aspirin (Ecotrin Tab) 81 mg DAILY PO 06/14/17 09:00 07/14/17 08:59 06/19/17 08:50 81 MG Tamsulosin HCl (Flomax Cap) 0.4 mg QPM PO 06/14/17 21:00 07/14/17 20:59 06/18/17 20:49 0.4 MG Pantoprazole Sodium (Protonix Tab) 40 mg QAM PO 06/14/17 09:00 07/14/17 08:59 06/19/17 08:50 40 MG Miscellaneous Information (Order Awaiting Action) 1 ea QS N/A 06/14/17 08:00 07/14/17 07:59 Enoxaparin Sodium (Lovenox Inj) 40 mg Q24H SC 06/14/17 09:00 07/14/17 08:59 06/19/17 08:51 40 MG Acetaminophen (Tylenol Tab) 650 mg Q4H PRN PO 06/14/17 06:00 07/14/17 05:59 Al Hydrox/Mg Hydrox/Simethicone (Maalox Max Susp) 15 ml Q4H PRN PO 06/14/17 06:00 07/14/17 05:59 Doxycycline Hyclate (Vibramycin Cap) 100 mg BID PO 06/14/17 09:00 06/21/17 08:59 06/19/17 08:50 100 MG Potassium Chloride (Klor-Con Tab) 20 meq BID PO 06/14/17 21:00 07/14/17 20:59 06/19/17 08:51 20 MEQ Lisinopril (Zestril Tab) 5 mg QAM PO 06/16/17 09:00 07/16/17 08:59 06/19/17 08:51 5 MG Prednisone (PredniSONE TAB) 40 mg DAILY PO 06/16/17 09:00 07/16/17 08:59 06/19/17 08:50 40 MG Metoprolol Succinate (Toprol Xl Tab) 12.5 mg QAM PO 06/19/17 09:00 07/19/17 08:59 06/19/17 08:50 12.5 MG Furosemide (Lasix Tab) 20 mg BID17 PO 06/19/17 17:00 07/18/17 16:59
[2017-06-19] MEDS ORDERED: IPRASOL4 INH (14:24)
[2017-06-19] MEDS ORDERED: LSX20 PO (14:24)
[2017-06-19] MEDS ORDERED: SYMIN160 INH (14:24)
[2017-06-19] MEDS ORDERED: TPRSR25 PO (14:24)
[2017-06-19] MEDS ORDERED: PRED10TA PO (14:24)
[2017-06-19] MEDS ORDERED: CHOL1000 PO (14:26)
--- NOTE | 2017-06-19 14:32 | Discharge Instructions ---
Discharge Instructions Date of Service Jun 19, 2017. Admission Reason for Admission: dyspnea . Discharge Discharge Diagnosis / Problem: exacerbation of CHF, exacerbation of COPD Discharge Goals Goal(s): Improve function, Increase independence, Improve disease control Activity Recommendations Activity Level: Assistance Required Therapies: Physical Therapy, Occupational Therapy . Additional Information Patient informed of condition: Yes Advance Directives: No DNR: No Level of Care: Acute Rehab Communicable Disease: No Prognosis: Improving Oxygen at (LPM): nocturnal O2 2 LPM via NC + during day when sleeping Jansen Catheter: No Instructions / Follow-Up Instructions / Follow-Up APPOINTMENTS: INTERNAL MEDICINE Dr. Reynolds 06/22/17 Thank you for receiving this patient in transfer. Please call if you have any questions. Stevo Vasquez . Current Hospital Diet Patient's current hospital diet: AHA Diet (Heart Healthy) Discharge Diet Recommended Diet: AHA Diet (Heart Healthy) Fluid Restriction: 1500 ml (6 cups) Procedures Procedures Performed: venous duplex lower extremitieis US abdomen echocardiogram Pending Studies Studies pending at discharge: no Physician Orders On Transfer Vital Signs: routine . Weigh: daily in a.m. . Additional Orders: Please check basic metabolic profile within 1 week, then as clinically indicated. . POLST Discussion: Not Applicable Laboratory Results Hemoglobin A1c Test 06/14/17 03:44 Range/Units Estimated Average Glucose 120 mg/dl Hemoglobin A1c 5.8 H 4.5-5.6 % Lipid Panel Test 06/14/17 03:44 Range/Units Triglycerides Level 123 0-150 mg/dl Cholesterol Level 177 0-200 mg/dl HDL Cholesterol 41 mg/dl Cholesterol/HDL Ratio 4.3 LDL Cholesterol, Calculated 111 mg/dl Medical Emergencies . Who to Call and When: Medical Emergencies: If at any time you feel your situation is an emergency, please call 911 immediately. . Non-Emergent Contact Non-Emergency issues call your: Primary Care Provider, Circuit Design Engineer, Hospital Doctor, Drill Press Hand . . "Provider Documentation" section prepared by Stevo Vasquez. . Core Measure Problem Core Measures: None
--- NOTE | 2017-06-19 14:41 | Discharge Summary ---
Discharge Summary Date of Service Jun 19, 2017. Discharge Summary Admission Date: Jun 14, 2017 at 05:57 Discharge Date: Jun 19, 2017 Discharge Disposition: Rehab ([facility]) Principal Diagnosis: exacerbation of CHF- acute on chronic left ventricular diastolic heart failure exacerbation of COPD . Secondary Diagnoses/Problems: Chronic and Resolved Medical Problems: (1) BPH (benign prostatic hyperplasia) Status: Chronic (2) Cerebrovascular disease Status: Chronic (3) Cholelithiasis Status: Chronic (4) CKD (chronic kidney disease) stage 3, GFR 30-59 ml/min Status: Chronic (5) COPD (chronic obstructive pulmonary disease) Permanent Comment: FEV1 = 1.09 (40% predicted) Status: Chronic (6) Coronary artery disease Status: Chronic (7) Liver lesion Permanent Comment: 1.9 cm lesion left lobe per US 06/15/17 Status: Chronic (8) Nocturnal hypoxia Status: Chronic (9) Obesity hypoventilation syndrome Status: Chronic (10) Sleep apnea, obstructive Permanent Comment: sleep study [place] 2016 Status: Chronic Surgical Problems: (1) Status post inguinal hernia repair Status: Chronic . Procedures: cardiac monitoring venous duplex lower extremities ultrasound liver echocardiogram PT OT . Consultations: Cardiology Pulmonary Medicine Nephrology . Medication Reconciliation New Medications: Budesonide/Formoterol Fumarate (Symbicort 160/4.5 Inhaler ) Aero 2 PUFFS INH BID for 30 Days, INHALER New med. Will need Rx when discharged from [facility]. Cholecalciferol (Vitamin D3) 1,000 Unit Tab 1000 MG PO DAILY for 30 Days, TAB 3 Refills New med. Will need Rx when discharged from [facility]. Ipratropium-Albuterol (Duoneb) 3 Ml Nebu 1 TREATMENT INH QID for 30 Days, INHA New med. Will need Rx when discharged from [facility]. Prednisone (Prednisone) 10 Mg Tab 0 PO UD, #20 TAB 40 mg x 2 days, 30 mg x 2 days, 20 mg x 2 days, 10 mg x 2 days, then stop. Furosemide (Furosemide) 20 Mg Tab 20 MG PO BID17 for 30 Days, TAB New dose. Will need Rx at time of DC from [facility]. Metoprolol Succinate (Metoprolol Succinate ER) 25 Mg Tabcr 12.5 MG PO QAM for 30 Days New dose. Will need new Rx at time of DC from [facility]. Continued Medications: Aspirin (Aspirin Ec) 81 Mg Tab 81 MG PO DAILY Fenofibrate (Fenoglide) 120 Mg Tab 120 MG PO DAILY Tamsulosin Hcl (Flomax) 0.4 Mg Cap 0.4 MG PO QPM, CAP Discontinued Medications: Albuterol Sulf (Proventil 0.083% 2.5MG/3ML) 2.5 Mg/3 Ml Nebu 2.5 MG INH QID PRN for Shortness of Breath, EA Ergocalciferol (Vitamin D 47103 Unit) 50,000 Unit Cap 20538 UNIT PO WK, CAP TAKES ON SUNDAYS. Furosemide (Lasix) 40 Mg Tab 40 MG PO DAILY, #3 TAB Glycopyrrolate-Formoterol Fuma (Bevespi Aerosphere 9-4.8 Mcg/Act) 1 Aer Aer 1 PUFF INH BID Metoprolol Succ (Toprol Xl) (Toprol-Xl) 25 Mg Tabcr 25 MG PO DAILY, #30 TAB Admission Information HPI (per Admitting provider): This is a 66 year old male with a PMH of COPD, former smoker, chronic respiratory failure on 2L O2 chronically, CAD, possibly CHF, CKD stage 3 - presents with worsening shortness of breath. He presented to [facility] on Sunday, 06/10 - was given neb treatments and Lasix and was sent home with Lasix as well. He came back with worsening swelling of the legs, about a 20lbs. weight gain in the past 3 weeks and worsening shortness of breath. He is from [place] and recently moved up to [facility] to live with his other daughter. He has not established care with a primary care around the area as of yet. States that he was on a water pill, but was taken off prior to coming to [place] due to his kidneys. His breathing is worse when he lies down flat. No chest pain or palpitations. . Physical Exam (per Admitting): General Appearance: + mild distress (secondary to pain and shortness of breath), + obese Head: normocephalic, atraumatic Eyes: normal inspection ENT: hearing grossly normal Neck: supple Respiratory/Chest: no respiratory distress, no accessory muscle use, + decreased breath sounds, + wheezing Cardiovascular: regular rate, rhythm, no murmur, + pertinent finding (+3 pitting edema b/l LE up to knees) Abdomen/GI: normal bowel sounds, non tender, soft Extremities/Musculoskelatal: + pedal edema (+3 pitting edema b/l LE), + swelling, + pertinent finding Neurologic/Psych: galvanizer II-XII nml as tested, no motor/sensory deficits, alert , normal mood/affect, oriented x 3 Skin: normal color Lymphatic: no adenopathy Hospital Course CHF Presented with dyspnea, worsening edema. Echocardiogram showed mild concentric left ventricular hypertrophy. Probable acute on chronic left ventricular diastolic heart failure with possible right-sided failure as well. Received IV diuretics with improvement. Transitioned to oral diuretic therapy with furosemide 20 mg BID. Follow exam, weights, labs. Titrate diuretics as necessary. CORONARY ARTERY DISEASE History of myocardial infarction. No anginal symptoms. Continue aspirin, metoprolol, lipid management. BRADYCARDIA Sinus bradycardia in 30's while sleeping without O2. Optimize pulmonary status. Decreased metoprolol succinate to 12.5 mg daily. EXACERBATION COPD History of COPD. PFTs performed at [place] on 12/25/16 demonstrated FEV1 1.09 (40% predicted ). No infiltrates on chest x-ray. Cough and wheezing could be secondary to bronchitis or CHF. Pulmonary Medicine consulted. Received methylprednisolone, albuterol nebs, doxycycline. Transitioned to oral steroid therapy with prednisone. Discharge on Symbicort, Duonebs, prednisone taper. SLEEP APNEA / OBESITY HYPOVENTILATION SYNDROME / NOCTURNAL HYPOXIA Sleep study performed at [place] in December 2016 and demonstrated apnea/ hypopnea index of 38. Intolerance of CPAP in past. Nocturnal pulse oximetry demonstrated O2 sats as low as 78%. BiPAP attempted, but patient did not tolerate it. Continue O2 2 LPM at night and whenever sleeping during the day. CEREBROVASCULAR DISEASE History of stroke or TIA. Continue aspirin and lipid management. CKD III History of worsening renal function associated with diuretics. Nephrology consulted. Creatinine day of admission was 0.9. Creatinine today = 1.25. Follow. BPH Continue tamsulosin. CHOLELITHIASIS Noted on ultrasound of abdomen. Asymptomatic. HEPATIC LESION 2.9 cm lesion noted left hepatic lobe, technically indeterminate by US. Discussed with patient. He indicates that he has been told the past that he had a spot on his liver (~ 1999 [facility]) Old records requested for baseline info, but reports received did not include imaging from around 1999. Old reports / images should be obtained as an outpatient with follow-up as clinically indicated. VTE PROPHYLAXIS SQ enoxaparin. INCOMPLETE DATA Old records received from [facility] in [place], [place]. Records also requested from [facility] in [place], [place]. DISPOSITION Arrangements being made for transfer to [facility] for inpatient rehab. Internal Medicine follow-up with Dr. Samuel Reynolds (has appointment for to get established). Pulmonary Medicine follow-up with [facility]. Nephrology follow-up with Dr. Stein. Transition to Cardiology follow-up with [facility] as outpatient to optimize continuity of care. . Total time spent on discharge = 45 min. This includes examination of the patient, discharge planning, medication reconciliation, and communication with other providers. . Discharge Instructions Date of Service Jun 19, 2017. Admission Reason for Admission: dyspnea . Discharge Discharge Diagnosis / Problem: exacerbation of CHF, exacerbation of COPD Discharge Goals Goal(s): Improve function, Increase independence, Improve disease control Activity Recommendations Activity Level: Assistance Required Therapies: Physical Therapy, Occupational Therapy . Additional Information Patient informed of condition: Yes Advance Directives: No DNR: No Level of Care: Acute Rehab Communicable Disease: No Prognosis: Improving Oxygen at (LPM): nocturnal O2 2 LPM via NC + during day when sleeping Jansen Catheter: No Instructions / Follow-Up Instructions / Follow-Up APPOINTMENTS: INTERNAL MEDICINE Dr. Reynolds 06/22/17 Thank you for receiving this patient in transfer. Please call if you have any questions. Stevo Vasquez . Current Hospital Diet Patient's current hospital diet: AHA Diet (Heart Healthy) Discharge Diet Recommended Diet: AHA Diet (Heart Healthy) Fluid Restriction: 1500 ml (6 cups) Procedures Procedures Performed: venous duplex lower extremitieis US abdomen echocardiogram Pending Studies Studies pending at discharge: no Physician Orders On Transfer Vital Signs: routine . Weigh: daily in a.m. . Additional Orders: Please check basic metabolic profile within 1 week, then as clinically indicated. . POLST Discussion: Not Applicable Laboratory Results Hemoglobin A1c Test 06/14/17 03:44 Range/Units Estimated Average Glucose 120 mg/dl Hemoglobin A1c 5.8 H 4.5-5.6 % Lipid Panel Test 06/14/17 03:44 Range/Units Triglycerides Level 123 0-150 mg/dl Cholesterol Level 177 0-200 mg/dl HDL Cholesterol 41 mg/dl Cholesterol/HDL Ratio 4.3 LDL Cholesterol, Calculated 111 mg/dl Medical Emergencies . Who to Call and When: Medical Emergencies: If at any time you feel your situation is an emergency, please call 911 immediately. . Non-Emergent Contact Non-Emergency issues call your: Primary Care Provider, Tax Agent, Hospital Doctor, Service Person . . "Provider Documentation" section prepared by Stevo Vasquez. . Core Measure Problem Core Measures: None . Additional Copies To Tomasz Dangelo DO; Alka Stein MD; Samuel Reynolds M.D.
--- NOTE | 2017-06-19 15:52 | PULMONARY PROGRESS NOTE ---
DATE: 06/19/2017 TIME: 2:15 p.m. SUBJECTIVE: The patient is feeling better. He is less short of breath. We gave him a trial yesterday of BiPAP for a very short time. Reportedly, he did not tolerate it, hardly at all. The patient said he kept it on for 1 hour, but I could not confirm that. He did not like the feeling of the air pressure. His daughter was present during this evaluation. The patient's speech seemed a bit better. He is going to [facility]. OBJECTIVE: GENERAL: The patient appears comfortable. Temperature is 36.9. His speech was clearer than yesterday. EARS, NOSE, THROAT: Exam is unchanged from yesterday. VITAL SIGNS: Heart rate was 87 per minute. The respiratory rate was 18 breaths per minute. LUNGS: Lung manrique revealed mild wheeze on expiration. He still had a cough when he would take a deep breath. Saturation was 94% on room air. ABDOMEN: Remains obese. It was soft and nontender. EXTREMITIES: Show +2 edema, which is unchanged. LABORATORY DATA: Electrolytes today show sodium 135, potassium 3.9, chloride 97, bicarbonate 34. BUN 27 with a creatinine of 1.25. IMPRESSIONS: 1. Chronic obstructive pulmonary disease with exacerbation. 2. Severe chronic obstructive pulmonary disease as per pulmonary function. 3. Obstructive sleep apnea -- intolerant of CPAP or BiPAP. 4. Obesity hypoventilation syndrome. COMMENTS AND RECOMMENDATIONS: I spoke with the patient and his daughter. She had several questions that I answered to the best of my ability. The case was then discussed with Dr. Vasquez. I did suggest that he be treated with a long-acting beta agonist combined with an inhaled steroid such as Symbicort or Advair. The patient has prostate problems and thus use of a long-acting muscarinic antagonist is probably not ideal. I suggested that he be given nebulizer treatments with albuterol and ipratropium. This would give him some anticholinergic that may help. Ideally, he should do this 2 or 3 times per day and the combination of this and his inhaler may improve his pulmonary function hopefully. We spoke about the need for weight loss. His daughter asked for other therapies for sleep apnea. I explained to her he is not a candidate for an oral appliance because he has no teeth. He is not a surgical candidate. We did suggest that he should avoid sleeping flat on his back. She mentioned she would like to get a hospital-type bed at home and I explained to her she would likely need to go through the professionals at [facility] in order to obtain that when he is ready for his discharge there.
[2017-06-19] MEDS ORDERED: FUROSEMIDE 20 MG TAB PO SCH (17:00)
== END 2017-06-19 15:23 | DRG 291 ==
LOC: EDBD 03:31 → C.EDB 03:33 → C.2T 05:57 → ENRESERV 06:09 → C.MED 06-17 22:48
PROVIDERS: ADMIT Family Medicine; ATTEND Hospitalist
DX: I13.0 Hypertensive heart and chronic kidney disease with heart failure and stage 1 through stage 4 chronic kidney disease, or unspecified chronic kidney disease (principal); I50.33 Acute on chronic diastolic (congestive) heart failure; J44.1 Chronic obstructive pulmonary disease with (acute) exacerbation; J96.10 Chronic respiratory failure, unspecified whether with hypoxia or hypercapnia; N17.9 Acute kidney failure, unspecified; E66.2 Morbid (severe) obesity with alveolar hypoventilation; I50.32 Chronic diastolic (congestive) heart failure; Z68.42 Body mass index [BMI] 45.0-49.9, adult; N18.3 Chronic kidney disease, stage 3 (moderate); I25.10 Atherosclerotic heart disease of native coronary artery without angina pectoris; Z86.73 Personal history of transient ischemic attack (TIA), and cerebral infarction without residual deficits; K80.20 Calculus of gallbladder without cholecystitis without obstruction; Z79.82 Long term (current) use of aspirin; Z87.891 Personal history of nicotine dependence

== ENCOUNTER → 2017-06-27 | Outpatient (CLI) | payer OTHER ==
[~2017-06-27] MED LIST changes: -ALBINS/ INH; +CHOL1000 PO; -ERGO500037 PO; -FRS/40 PO; -GLYC1AER INH; +IPRASOL4 INH; +LSX20 PO; -METO25TA3 PO; +PRED10TA PO; +SYMIN160 INH; +TPRSR25 PO
[2017-06-27 12:25] LABS: HEMATOCRIT 47.8 % (42-52); MEAN CELL VOLUME 98.2 fL (80-100); MEAN CORPUSCULAR HGB CONC 30.5 g/dl (32-36); MEAN PLATELET VOLUME 9.3 fL (7.4-10.4); PLATELET COUNT 249 K/uL (130-400); RED BLOOD COUNT 4.87 M/uL (4.7-6.1); WHITE BLOOD COUNT 9.75 K/uL (4.8-10.8)
[2017-06-27 13:05] LABS: BLOOD UREA NITROGEN 11 mg/dl (7-18); BUN/CREATININE RATIO 11.5 (10-20); CALCIUM 8.4 mg/dl (8.5-10.1); CARBON DIOXIDE 34 mmol/L (21-32); CHLORIDE 102 mmol/L (98-107); CREATININE 0.96 mg/dl (0.60-1.40); GLUCOSE 93 mg/dl (70-99); SODIUM 138 mmol/L (136-145)
== END | disposition home or self-care (01) ==
LOC: C.LAB1850 11:15
PROVIDERS: ATTEND Internal Medicine Clinical Cardiac Electrophysiology
DX: I25.10 Atherosclerotic heart disease of native coronary artery without angina pectoris (principal)